=== PATIENT | female | born 1970 ===

== ENCOUNTER 2018-08-10 14:08 | Observation (INO) | payer MEDICARE, MEDICAID ==
--- NOTE | 2018-08-10 15:23 | C.PDOC ---
History Of Present Illness 48 years old female presents to ED for complaints of dizziness associated with right sided and epigastric abdominal pain and nausea that began 3 months ago. at bedside states patient is requesting tests to be done. Denies v aginal bleeding, dysuria, vomiting, diarrhea, or any other physical complaints. Patient also reports she has seen PMD recently for similar complaints and was prescribed medications meclizine and nexium. PMD: Deisy Leonard Time Seen by Provider: 08/10/18 14:28 Chief Complaint (Nursing): Dizziness/Lightheaded History Per: Patient, Family ( ) History/Exam Limitations: no limitations, language barrier Onset/Duration Of Symptoms: Days, Intermittent Episodes Current Symptoms Are (Timing): Still Present Associated Symptoms Preceding Syncopal Episode: No Predromal Symptoms (Sudden Onset) Seizure Or Post-ictal Symptoms: None Possible Causative Factor(s): Vertigo Fall Associated With With Symptoms: No Recent travel outside of the [place]: No - Symptoms Of CVA Recent Aspirin Use: No Current Coumadin Use?: No Recent Head Trauma: No Past Medical History Reviewed: Historical Data, Nursing Documentation, Vital Signs Vital Signs: Last Vital Signs Temp 97.7 F 08/10/18 14:13 Pulse 56 L 08/10/18 14:13 Resp 18 08/10/18 14:13 BP 105/71 08/10/18 14:13 Pulse Ox 99 08/10/18 14:13 - Medical History PMH: Asthma, Osteoporosis, Parkinson's Disease Family History: States: Unknown Family Hx - Social History Hx Tobacco Use: No Hx Alcohol Use: No Hx Substance Use: No - Immunization History Hx Tetanus Toxoid Vaccination: No Hx Influenza Vaccination: Yes Hx Pneumococcal Vaccination: No Review Of Systems Except As Marked, All Systems Reviewed And Found Negative. Constitutional: Negative for: Fever Gastrointestinal: Negative for: Vomiting Physical Exam - Physical Exam Additional Physical Exam Comments: Constitutional: No acute distress. Head: Normocephalic. Atraumatic. Eyes: PERRL. ENT: Moist mucous membranes. Neck: Supple. Cardiovascular: Regular rate. Radial pulse 2+ bilaterally. Chest: No tenderness. Respiratory: Clear to auscultation bilaterally. GI: Soft. Nontender. Nondistended. Back: No CVA tenderness. Musculoskeletal: No tenderness or swelling of extremities. Skin: No rash. Neurologic: Alert, no focal deficit. ED Course And Treatment - Laboratory Results Result Diagrams: 08/10/18 16:01 08/10/18 16:01 O2 Sat by Pulse Oximetry: 99 (RA) Pulse Ox Interpretation: Normal - CT Scan/US Abdomen/Pelvis CT Other Rad Studies (CT/US): Read By Radiologist, Radiology Report Reviewed CT/US Interpretation: Date of service: 08/10/2018. PROCEDURE: CT Abdomen and Pelvis with contrast. HISTORY: abdominal pain. COMPARISON: CT abdomen and pelvis without contrast performed 12/29/16. TECHNIQUE: Contrast dose: 100 mL Visipaque IV. Radiation dose: Total exam DLP = 395.22 mGy-cm. This CT exam was performed using one or more of the following dose reduction techniques: Automated exposure control, adjustment of the mA and/or kV according to patient size, and/or use of iterative reconstruction technique. FINDINGS: LOWER THORAX: No visible consolidation, pleural effusion, or pneumothorax. LIVER: Unremarkable. GALLBLADDER AND BILE DUCTS: Unremarkable. PANCREAS: Unremarkable. SPLEEN: Unremarkable. ADRENALS: Unremarkable. KIDNEYS AND URETERS: The kidneys enhance symmetrically. No hydronephrosis or obstructing calculus identified. Nonobstructing 2 mm left renal calculus. VASCULATURE: No aortic aneurysm. BOWEL: Stomach is nondistended. Lack of oral contrast limits evaluation for bowel pathology. Bowel loops appear within normal limits of caliber without evidence of obstruction. APPENDIX: The appendix appears mildly dilated measuring approximately 8 mm in diameter. Minimal adjacent inflammatory stranding. Correlate clinically for possibility of early appendicitis. PERITON EUM: Small pelvic free fluid. No definite free air. LYMPH NODES: Sub cm mesenteric lymph nodes, nonspecific. BLADDER: Unremarkable. REPRODUCTIVE: Uterus is present. Bilateral probable ovarian cysts. Prominent adnexal vasculature suggests pelvic congestion syndrome. BONES: No acute osseous abnormality is detected. OTHER FINDINGS: None. IMPRESSION: The appendix appears mildly dilated measuring approximately 8 mm in diameter. Minimal adjacent inflammatory stranding. Correlate clinically for possibility of early appendicitis. Bilateral probable ovarian cysts. Prominent adnexal vasculature suggests pelvic congestion syndrome. Small pelvic free fluid. Suggest pelvic ultrasound for further evaluation. Nonobstructing left renal calculus. Prominent sub cm mesenteric lymph nodes, nonspecific. Additional findings as above. Findings discussed with Dr. Kemp on 08/10/18 at 5:56 p.m. Medical Decision Making Medical Decision Making: Plan: * CT Abdomen/PElvis * EKG * Blood work * IV fluids * UA Progress: Paged Curt Ho. General surgeon presentation team member, consulted. Resident Dr. Bernardo evaluated patient at bedside, in consultation with Lewis, will observe. See his note. Discussed case with Dr. Yvon GALVEZ presentation team member who will evaluate patient. Shaniqua Germain accepts patient to hospitalist service. Disposition - Disposition Disposition: HOSPITALIZED Disposition Time: 20:32 Condition: FAIR Forms: [facility] (Welsh) - Clinical Impression Clinical Impression: Pelvic congestion, Appendix disease - Scribe Statement The provider has reviewed the documentation as recorded by the Scribe Nini Palmer All medical record entries made by the Scribe were at my direction and personally dictated by me. I have reviewed the chart and agree that the record accurately reflects my personal performance of the history, physical exam, medical decision making, and the department course for this patient. I have also personally directed, reviewed, and agree with the discharge instructions and disposition.
[2018-08-10] MEDS ORDERED: Sodium Chloride 0.9% 1,000 ML IV STA (15:47)
[2018-08-10 16:04] LABS: BASO % 0.5 % (0.0-2.0); EOS % 0.5 % (0.0-4.0); HEMOGLOBIN 12.6 g/dL (11.0-16.0); LYMPH # 1.5 K/uL (1.0-4.3); LYMPH % 32.1 % (20.0-40.0); MEAN CELL VOLUME 93.3 fL (81.0-99.0); MEAN CORPUSCULAR HEMOGLOBIN 31.5 pg (27.0-31.0); MEAN CORPUSCULAR HGB CONC 33.8 g/dL (33.0-37.0); MEAN PLATELET VOLUME 8.8 fL (7.2-11.7); MONO # 0.5 K/uL (0.0-0.8); MONO % 10.2 % (0.0-10.0); NEUT # 2.6 K/uL (1.8-7.0); NEUT % 56.7 % (50.0-75.0); RBC 4.01 Mil/uL (3.80-5.20); WHITE BLOOD COUNT 4.5 K/uL (4.8-10.8)
[2018-08-10 16:20] LABS: ALB/GLOB RATIO 1.2 (1.0-2.1); ALBUMIN 3.7 g/dL (3.5-5.0); ALT/SGPT 19 U/L (9-52); AST/SGOT 19 U/L (14-36); BLOOD UREA NITROGEN 14 mg/dL (7-17); CALCIUM 8.8 mg/dl (8.6-10.4); GFR NON-AFRICAN AMERICAN > 60; LIPASE 137 U/L (23-300)
[2018-08-10 16:37] LABS: HCG,QUALITATIVE URINE NEGATIVE (NEGATIVE)
[2018-08-10 16:45] LABS: SQUAMOUS EPITHIAL 2 /hpf (0-5); URINE BILIRUBIN NEGATIVE (NEGATIVE); URINE BLOOD NEGATIVE (NEGATIVE); URINE CLARITY Clear (Clear); URINE COLOR Colorless (YELLOW); URINE GLUCOSE (UA) NORMAL (Normal); URINE LEUKOCYTE ESTERASE NEG Leu/uL (Negative); URINE PROTEIN NEGATIVE (NEGATIVE); URINE UROBILINOGEN NORMAL mg/dL (0.2-1.0)
--- NOTE | 2018-08-10 18:08 | CT ---
Date of service: 08/10/2018 PROCEDURE: CT Abdomen and Pelvis with contrast HISTORY: abdominal pain COMPARISON: CT abdomen and pelvis without contrast performed 12/29/16 TECHNIQUE: Contrast dose: 100 mL Visipaque IV Radiation dose: Total exam DLP = 395.22 mGy-cm. This CT exam was performed using one or more of the following dose reduction techniques: Automated exposure control, adjustment of the mA and/or kV according to patient size, and/or use of iterative reconstruction technique. FINDINGS: LOWER THORAX: No visible consolidation, pleural effusion, or pneumothorax. LIVER: Unremarkable. GALLBLADDER AND BILE DUCTS: Unremarkable. PANCREAS: Unremarkable. SPLEEN: Unremarkable. ADRENALS: Unremarkable. KIDNEYS AND URETERS: The kidneys enhance symmetrically. No hydronephrosis or obstructing calculus identified. Nonobstructing 2 mm left renal calculus. VASCULATURE: No aortic aneurysm. BOWEL: Stomach is nondistended. Lack of oral contrast limits evaluation for bowel pathology. Bowel loops appear within normal limits of caliber without evidence of obstruction. APPENDIX: The appendix appears mildly dilated measuring approximately 8 mm in diameter. Minimal adjacent inflammatory stranding. Correlate clinically for possibility of early appendicitis. PERITONEUM: Small pelvic free fluid. No definite free air. LYMPH NODES: Sub cm mesenteric lymph nodes, nonspecific. BLADDER: Unremarkable. REPRODUCTIVE: Uterus is present. Bilateral probable ovarian cysts. Prominent adnexal vasculature suggests pelvic congestion syndrome. BONES: No acute osseous abnormality is detected. OTHER FINDINGS: None. IMPRESSION: The appendix appears mildly dilated measuring approximately 8 mm in diameter. Minimal adjacent inflammatory stranding. Correlate clinically for possibility of early appendicitis. Bilateral probable ovarian cysts. Prominent adnexal vasculature suggests pelvic congestion syndrome. Small pelvic free fluid. Suggest pelvic ultrasound for further evaluation. Nonobstructing left renal calculus. Prominent sub cm mesenteric lymph nodes, nonspecific. Additional findings as above. Findings discussed with Dr. Kemp on 08/10/18 at 5:56 p.m.
--- NOTE | 2018-08-10 20:32 | CP.PCM.CON ---
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 Pt presents with new onset weakness and dizziness. Pt is also complaining of vague abdominal pain which has been going on for 3 months. She reports the pain is throughout the entire abdomen, but mostly concentrated in the bilateral lower quadrants. Throughout this time she has felt intermittently nauseous, but has never vomited. She has continued to tolerate PO intake. Pt states she has a history of 3 C-sections. She has had long-standing history of irregular menses, and sometimes goes for months without having it. Was instructed by OBGYN to get transvaginal ultrasound as outpatient but had not completed this study. Her LMP was 1 month ago. She denies any exce ssive pain or bleeding when she does have her menses, but claims she has a "retro-flexed uterus" which causes her to be constipated, which is typically worse during her menses. Last BM was yesterday and normal, no diarrhea, no blood, though required straining. CT scans shows mildly dilated appendix 8mm, fluid filled, no appendicolith, minimal surrounding inflammation that is actually worse within the pelvis. CT also read as diffusely dilated veins within the pelvis consistent with Pelvic Co ngestion Syndrome. Review of Systems - Review of Systems All systems: reviewed and no additional remarkable complaints except (as per hpi) Past Patient History - Infectious Disease Hx of Infectious Diseases: None - Past Social History Smoking Status: Never Smoked - PULMONARY Hx Asthma: Yes - NEUROLOGICAL Hx Parkinson's Disease: Yes - HEMATOLOGICAL/ONCOLOGICAL Hx Hepatitis B: Yes Other/Comment: Hepatitis - MUSCULOSKELETAL/RHEUMATOLOGICAL Hx Osteoporosis: Yes - PSYCHIATRIC Hx Substance Use: No - SURGICAL HISTORY Hx Section: Yes (x3) - ANESTHESIA Hx Anesthesia: Yes Hx Anesthesia Reactions: No Meds Allergies/Adverse Reactions: Allergies Allergy/AdvReac Type Severity Reaction Status Date / Time budesonide [From Pulmicort] Allergy Verified 01/03/17 02:15 ciprofloxacin Allergy THROAT Verified 01/04/17 14:42 CLOSING, TINGLING, CONSTRICTION latex Allergy Verified 01/03/17 02:15 morphine Allergy Verified 01/03/17 02:15 Physical Exam - Constitutional Appears: Non-toxic, No Acute Distress - Head Exam Head Exam: NORMOCEPHALIC - Eye Exam Eye Exam: Normal appearance - ENT Exam ENT Exam: Mucous Membranes Moist - Respiratory Exam Respiratory Exam: NORMAL BREATHING PATTERN. absent: Accessory Muscle Use, Respiratory Distress - Cardiovascular Exam Cardiovascular Exam: REGULAR RHYTHM, +S1, +S2. absent: Tachycardia - GI/Abdominal Exam GI & Abdominal Exam: Normal Bowel Sounds, Soft, Tenderness (extremely minimal pain to deep palpation in L & R lower quadrants). absent: Distended, Firm, Guarding, Hernia, Mass, Rebound, Rigid Additional comments: -Rovsings, - rebound, -McBurneys - Rectal Exam Rectal Exam: Deferred - Extremities Exam Extremities exam: Negative for: calf tenderness, pedal edema - Back Exam Back exam: absent: CVA tenderness (L), CVA tenderness (R) - Neurological Exam Neurological exam: Alert, Oriented x3 - Psychiatric Exam Psychiatric exam: Normal Affect, Normal Mood Results - Vital Signs Recent Vital Signs: Last Vital Signs Temp 97.5 F L 08/10/18 18:44 Pulse 64 08/10/18 18:44 Resp 18 08/10/18 18:44 BP 95/57 L 08/10/18 18:44 Pulse Ox 99 08/10/18 18:48 - Labs Result Diagrams: 08/10/18 16:01 08/10/18 16:01 Labs: Laboratory Results - last 24 hr 08/10/18 08/10/18 08/10/18 14:26 16:01 16:01 WBC 4.5 L RBC 4.01 Hgb 12.6 Hct 37.4 MCV 93.3 MCH 31.5 H MCHC 33.8 RDW 14.0 Plt Count 156 MPV 8.8 Neut % (Auto) 56.7 Lymph % (Auto) 32.1 Cobb % (Auto) 10.2 H Eos % (Auto) 0.5 Baso % (Auto) 0.5 Neut # (Auto) 2.6 Lymph # (Auto) 1.5 Cobb # (Auto) 0.5 Eos # (Auto) 0.0 Baso # (Auto) 0.0 Sodium 139 Potassium 4.2 Chloride 104 Carbon Dioxide 27 Anion Gap 13 BUN 14 Creatinine 0.6 L Est GFR ( Amer) > 60 Est GFR (Non-Af Amer) > 60 POC Glucose (mg/dL) 101 Random Glucose 83 Calcium 8.8 Total Bilirubin 0.5 AST 19 ALT 19 Alkaline Phosphatase 62 Total Protein 6.7 Albumin 3.7 Globulin 3.0 Albumin/Globulin Ratio 1.2 Lipase 137 Urine Color Urine Clarity Urine pH Ur Specific [place] Urine Protein Urine Glucose (UA) Urine Ketones Urine Blood Urine Nitrate Urine Bilirubin Urine Urobilinogen Ur Leukocyte Esterase Urine WBC (Auto) Urine RBC (Auto) Ur Squamous Epith Cells Urine HCG, Qual 08/10/18 16:34 WBC RBC Hgb Hct MCV MCH MCHC RDW Plt Count MPV Neut % (Auto) Lymph % (Auto) [place] % (Auto) Eos % (Auto) Baso % (Auto) Neut # (Auto) Lymph # (Auto) [place] # (Auto) Eos # (Auto) Baso # (Auto) Sodium Potassium Chloride Carbon Dioxide Anion Gap BUN Creatinine Est GFR ( Amer) Est GFR (Non-Af Amer) POC Glucose (mg/dL) Random Glucose Calcium Total Bilirubin AST ALT Alkaline Phosphatase Total Protein Albumin Globulin Albumin/Globulin Ratio Lipase Urine Color Colorless Urine Clarity Clear Urine pH 8.0 Ur Specific [place] 1.002 L Urine Protein Negative Urine Glucose (UA) Normal Urine Ketones Negative Urine Blood Negative Urine Nitrate Negative Urine Bilirubin Negative Urine Urobilinogen Normal Ur Leukocyte Esterase Neg Urine WBC (Auto) < 1 Urine RBC (Auto) < 1 Ur Squamous Epith Cells 2 Urine HCG, Qual Negative Assessment & Plan - Assessment and Plan (Free Text) Assessment: 48F with 3 months history of vague abdominal pain w/ nausea, constipation Plan: clinically pt does not appear to have appendicitis would recommend pt be admitted for observation given no leukocytosis, can hold on anti-biotics til repeat labs tomorrow keep NPO recommend gynecology consult, possible transvaginal ultrasound d/w Dr Lewis Bernardo, PGY4
[2018-08-10] MEDS ORDERED: CARBIDOPA PO PRN (21:59)
[2018-08-10] MEDS ORDERED: Albuterol-Ipratrop 3 mg / 0.5 (3 ml) UD INH PRN (21:59)
[2018-08-10] MEDS ORDERED: LEVODOPA PO PRN (21:59)
[2018-08-11] MEDS ORDERED: Sodium Chloride 0.9% 1,000 ML IV SCH
--- NOTE | 2018-08-11 00:36 | CP.PCM.HP ---
<Charmaine Chaudhary - Last Filed: 08/11/18 00:33> History of Present Illness - History of Present Illness History of Present Illness: Pt is a 48F PMH parkinsons, asthma, osteoporosis who presents to ED c/o dizziness for 3 months that worsened today. She reports feeling dizzy when she gets up from bed in the morning but today it was worse and she experienced it when she was walking. She felt like she was moving left to right, back and forth. She denies any vision changes or headache. She reports not eating during the day, only having one meal at night. She also reports decreased water intake. She also complains of RLQ abdominal pain x3 months, that presents as a sharp pulsating pain for two seconds. She also reports going through menopause, and having irregular menses that are sometimes one week long, and sometimes just light spotting. Her PMD requested a TVUS which she has not yet had. SxH: 3 c-sections FamH: dad , Etoh-pancreatitis SocH: denies tobacco, alcohol, recreational drug use Meds: sinimet Allergies: budenoside, cipro, latex, morphine PMD: Horacio Present on Admission - Present on Admission Any Indicators Present on Admission: No Review of Systems - Review of Systems Review of Systems: as per HPI Past Patient History - Infectious Disease Hx of Infectious Diseases: None - Past Social History Smoking Status: Never Smoked - PULMONARY Hx Asthma: Yes - NEUROLOGICAL Hx Parkinson's Disease: Yes - HEMATOLOGICAL/ONCOLOGICAL Hx Hepatitis B: Yes Other/Comment: Hepatitis - MUSCULOSKELETAL/RHEUMATOLOGICAL Hx Osteoporosis: Yes - PSYCHIATRIC Hx Substance Use: No - SURGICAL HISTORY Hx Section: Yes (x3) - ANESTHESIA Hx Anesthesia: Yes Hx Anesthesia Reactions: No Meds Allergies/Adverse Reactions: Allergies Allergy/AdvReac Type Severity Reaction Status Date / Time budesonide [From Pulmicort] Allergy Verified 01/03/17 02:15 ciprofloxacin Allergy THROAT Verified 01/04/17 14:42 CLOSING, TINGLING, CONSTRICTION latex Allergy Verified 01/03/17 02:15 morphine Allergy Verified 01/03/17 02:15 Physical Exam - Constitutional Appears: Well, No Acute Distress - Head Exam Head Exam: ATRAUMATIC, NORMOCEPHALIC - Eye Exam Eye Exam: EOMI, Normal appearance, PERRL Pupil Exam: NORMAL ACCOMODATION - ENT Exam ENT Exam: Mucous Membranes Moist - Respiratory Exam Respiratory Exam: Clear to Auscultation Bilateral, NORMAL BREATHING PATTERN. absent: Rales, Rhonchi, Wheezes, Respiratory Distress - Cardiovascular Exam Cardiovascular Exam: REGULAR RHYTHM, RRR, +S1, +S2. absent: Gallop, Rubs, Systolic Murmur - GI/Abdominal Exam GI & Abdominal Exam: Normal Bowel Sounds, Soft. absent: Distended, Firm, Tenderness Additional comments: no suprapubic tenderness - Extremities Exam Extremities exam: Positive for: normal inspection. Negative for: pedal edema, tenderness - Neurological Exam Neurological exam: Alert, CN II-XII Intact, Oriented x3 - Psychiatric Exam Psychiatric exam: Normal Affect, Normal Mood Results - Vital Signs Recent Vital Signs: Last Vital Signs Temp 98.6 F 08/10/18 21:08 Pulse 59 L 08/10/18 21:08 Resp 16 08/10/18 21:08 BP 104/69 08/10/18 21:08 Pulse Ox 100 08/10/18 21:08 - Labs Result Diagrams: 08/10/18 16:01 08/10/18 16:01 Labs: Laboratory Results - last 24 hr 08/10/18 08/10/18 08/10/18 14:26 16:01 16:01 WBC 4.5 L RBC 4.01 Hgb 12.6 Hct 37.4 MCV 93.3 MCH 31.5 H MCHC 33.8 RDW 14.0 Plt Count 156 MPV 8.8 Neut % (Auto) 56.7 Lymph % (Auto) 32.1 [place] % (Auto) 10.2 H Eos % (Auto) 0.5 Baso % (Auto) 0.5 Neut # (Auto) 2.6 Lymph # (Auto) 1.5 [place] # (Auto) 0.5 Eos # (Auto) 0.0 Baso # (Auto) 0.0 Sodium 139 Potassium 4.2 Chloride 104 Carbon Dioxide 27 Anion Gap 13 BUN 14 Creatinine 0.6 L Est GFR ( Amer) > 60 Est GFR (Non-Af Amer) > 60 POC Glucose (mg/dL) 101 Random Glucose 83 Calcium 8.8 Total Bilirubin 0.5 AST 19 ALT 19 Alkaline Phosphatase 62 Total Protein 6.7 Albumin 3.7 Globulin 3.0 Albumin/Globulin Ratio 1.2 Lipase 137 Urine Color Urine Clarity Urine pH Ur Specific [place] Urine Protein Urine Glucose (UA) Urine Ketones Urine Blood Urine Nitrate Urine Bilirubin Urine Urobilinogen Ur Leukocyte Esterase Urine WBC (Auto) Urine RBC (Auto) Ur Squamous Epith Cells Urine HCG, Qual 08/10/18 16:34 WBC RBC Hgb Hct MCV MCH MCHC RDW Plt Count MPV Neut % (Auto) Lymph % (Auto) [place] % (Auto) Eos % (Auto) Baso % (Auto) Neut # (Auto) Lymph # (Auto) [place] # (Auto) Eos # (Auto) Baso # (Auto) Sodium Potassium Chloride Carbon Dioxide Anion Gap BUN Creatinine Est GFR ( Amer) Est GFR (Non-Af Amer) POC Glucose (mg/dL) Random Glucose Calcium Total Bilirubin AST ALT Alkaline Phosphatase Total Protein Albumin Globulin Albumin/Globulin Ratio Lipase Urine Color Colorless Urine Clarity Clear Urine pH 8.0 Ur Specific [place] 1.002 L Urine Protein Negative Urine Glucose (UA) Normal Urine Ketones Negative Urine Blood Negative Urine Nitrate Negative Urine Bilirubin Negative Urine Urobilinogen Normal Ur Leukocyte Esterase Neg Urine WBC (Auto) < 1 Urine RBC (Auto) < 1 Ur Squamous Epith Cells 2 Urine HCG, Qual Negative Assessment & Plan - Assessment and Plan (Free Text) Assessment: Pt is a 48F PMH parkinsons, asthma, osteoporosis who presents to ED c/o ricco crocker admitted for further evaluation and treatment of possible appendicitis Plan: Early Appendicitis - pt afebrile - WBC - asymptomatic - CT abdomen/pelvis: appendix mildly dilated approx 8mm. minimal adjacent inflammatory stranding. possible early appendicitis - repeat CT abdomen pelvis in AM - General surgery consulted, Dr. Saucedo: recommend monitoring without antibiotics - NPO Pelvic Congestion syndrome - pt with irregular menses - CT abdomen/pelvis: b/l ovarian cysts. priminent adnexal vasculature suggestive of pelvic congestion syndrome. small free pelvic fluid - TV/US ordered - IN[employer]E T[employer] EXPERT consulted, Dr. Sanz: f/u recs Parkinsons - pt asymptomatic - sinimet PRN Asthma - pt asymptomatic - duonebs PRN PPX: Pepcid 20 SCDs NPO except meds Case reviewed and plan discussed with Dr. Germain <Himanshu Germain - Last Filed: 08/11/18 06:37> Results - Vital Signs Recent Vital Signs: Last Vital Signs Temp 98.3 F 08/11/18 04:21 Pulse 62 10/15/18 04:21 Resp 16 08/11/18 04:21 BP 96/57 L 08/11/18 04:21 Pulse Ox 98 08/11/18 04:21 - Labs Result Diagrams: 08/11/18 04:08 08/11/18 04:08 Labs: Laboratory Results - last 24 hr 08/10/18 08/10/18 08/10/18 14:26 16:01 16:01 WBC 4.5 L RBC 4.01 Hgb 12.6 Hct 37.4 MCV 93.3 MCH 31.5 H MCHC 33.8 RDW 14.0 Plt Count 156 MPV 8.8 Neut % (Auto) 56.7 Lymph % (Auto) 32.1 [place] % (Auto) 10.2 H Eos % (Auto) 0.5 Baso % (Auto) 0.5 Neut # (Auto) 2.6 Lymph # (Auto) 1.5 [place] # (Auto) 0.5 Eos # (Auto) 0.0 Baso # (Auto) 0.0 Sodium 139 Potassium 4.2 Chloride 104 Carbon Dioxide 27 Anion Gap 13 BUN 14 Creatinine 0.6 L Est GFR ( Amer) > 60 Est GFR (Non-Af Amer) > 60 POC Glucose (mg/dL) 101 Random Glucose 83 Calcium 8.8 Total Bilirubin 0.5 AST 19 ALT 19 Alkaline Phosphatase 62 Total Protein 6.7 Albumin 3.7 Globulin 3.0 Albumin/Globulin Ratio 1.2 Lipase 137 Urine Color Urine Clarity Urine pH Ur Specific [place] Urine Protein Urine Glucose (UA) Urine Ketones Urine Blood Urine Nitrate Urine Bilirubin Urine Urobilinogen Ur Leukocyte Esterase Urine WBC (Auto) Urine RBC (Auto) Ur Squamous Epith Cells Urine HCG, Qual 08/10/18 08/11/18 08/11/18 16:34 04:08 04:08 WBC 5.6 RBC 3.80 Hgb 11.8 Hct 35.4 MCV 93.1 MCH 31.1 H MCHC 33.4 RDW 13.8 Plt Count 135 MPV 9.0 Neut % (Auto) 49.0 L Lymph % (Auto) 38.7 [place] % (Auto) 10.9 H Eos % (Auto) 1.1 Baso % (Auto) 0.3 Neut # (Auto) 2.8 Lymph # (Auto) 2.2 [place] # (Auto) 0.6 Eos # (Auto) 0.1 Baso # (Auto) 0.0 Sodium 139 Potassium 3.6 Chloride 108 H Carbon Dioxide 23 Anion Gap 11 BUN 10 Creatinine 0.6 L Est GFR ( Amer) > 60 Est GFR (Non-Af Amer) > 60 POC Glucose (mg/dL) Random Glucose 79 Calcium 8.2 L Total Bilirubin 0.5 AST 17 ALT 17 Alkaline Phosphatase 56 Total Protein 5.9 L Albumin 3.2 L Globulin 2.7 Albumin/Globulin Ratio 1.2 Lipase Urine Color Colorless Urine Clarity Clear Urine pH 8.0 Ur Specific [place] 1.002 L Urine Protein Negative Urine Glucose (UA) Normal Urine Ketones Negative Urine Blood Negative Urine Nitrate Negative Urine Bilirubin Negative Urine Urobilinogen Normal Ur Leukocyte Esterase Neg Urine WBC (Auto) < 1 Urine RBC (Auto) < 1 Ur Squamous Epith Cells 2 Urine HCG, Qual Negative Assessment & Plan - Date & Time Date: 08/11/18 (I have seen and examined the patient. I agree with the findings and plan of care as documented by Dr. Chaudhary. Patient with possible early appendicitis. Seen by surgery. Reports no surgery necessary at this time. Will monitor for worsening symptoms, increased white count, and fever. Also with pelvic congestion syndrome. 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 Monitor for acute changes.) Time: 06:35 Attending/Attestation - Attestation I have personally seen and examined this patient.: Yes I have fully participated in the care of the patient.: Yes I have reviewed all pertinent clinical information: Yes
[2018-08-11 04:11] LABS: BASO % 0.3 % (0.0-2.0); EOS # 0.1 K/uL (0.0-0.7); EOS % 1.1 % (0.0-4.0); HEMOGLOBIN 11.8 g/dL (11.0-16.0); LYMPH # 2.2 K/uL (1.0-4.3); LYMPH % 38.7 % (20.0-40.0); MEAN CELL VOLUME 93.1 fL (81.0-99.0); MEAN CORPUSCULAR HEMOGLOBIN 31.1 pg (27.0-31.0); MEAN CORPUSCULAR HGB CONC 33.4 g/dL (33.0-37.0); MONO # 0.6 K/uL (0.0-0.8); MONO % 10.9 % (0.0-10.0); NEUT # 2.8 K/uL (1.8-7.0); NRBC % 0.2 % (0.0-2.0); RBC 3.8 Mil/uL (3.80-5.20); RED CELL DISTRIBUTION WIDTH 13.8 % (11.5-14.5); WHITE BLOOD COUNT 5.6 K/uL (4.8-10.8)
[2018-08-11 04:26] LABS: ALB/GLOB RATIO 1.2 (1.0-2.1); ALBUMIN 3.2 g/dL (3.5-5.0); ALT/SGPT 17 U/L (9-52); AST/SGOT 17 U/L (14-36); BLOOD UREA NITROGEN 10 mg/dL (7-17); CALCIUM 8.2 mg/dl (8.6-10.4); GFR NON-AFRICAN AMERICAN > 60
[2018-08-11] MEDS ORDERED: Iohexol 240 (50 ml) PO ONE (05:54)
[2018-08-11] MEDS ORDERED: Dextrose 50% SYRINGE Inj (50 ml) IV ONE (07:15)
--- NOTE | 2018-08-11 08:40 | CP.PCM.PN ---
Subjective - Date & Time of Evaluation Date of Evaluation: 08/11/18 Time of Evaluation: 06:50 - Subjective Subjective: Surgery progress note for Dr. Saucedo Pt seen and examined at bedside, No adverse events overnight. Patient states she feels better this AM. Denies any nausea or vomiting Objective - Vital Signs/Intake and Output Vital Signs (last 24 hours): Temp Pulse Resp BP Pulse Ox 98.3 F 62 16 96/57 L 98 08/11/18 04:21 08/11/18 04:21 08/11/18 04:21 08/11/18 04:21 08/11/18 04:21 - Medications Medications: Current Medications Acetaminophen (Tylenol 325mg Tab) 650 mg PO Q6 PRN PRN Reason: Pain, moderate (4-7) Albuterol/Ipratropium (Duoneb 3 Mg/0.5 Mg (3 Ml) Ud) 3 ml INH RQ4 PRN PRN Reason: Shortness of Breath Carbidopa/Levodopa (Sinemet) 1 tab PO DAILY PRN PRN Reason: Rigors Famotidine (Pepcid) 20 mg PO DAILY CÉSAR Sodium Chloride (Sodium Chloride 0.9%) 1,000 mls @ 100 mls/hr IV .Q10H CÉSAR Last Admin: 08/11/18 00:00 Dose: 100 mls/hr Ondansetron HCl (Zofran Inj) 4 mg IVP Q6 PRN PRN Reason: Nausea/Vomiting Zolpidem Tartrate (Ambien) 5 mg PO HS PRN PRN Reason: Insomnia Last Admin: 08/10/18 23:43 Dose: 5 mg - Labs Labs: 08/11/18 04:08 08/11/18 04:08 - Constitutional Appears: Well, Non-toxic, No Acute Distress - Head Exam Head Exam: ATRAUMATIC, NORMOCEPHALIC - Eye Exam Eye Exam: Normal appearance. absent: Conjunctival injection, Scleral icterus - ENT Exam ENT Exam: Mucous Membranes Moist, Normal Oropharynx - Respiratory Exam Respiratory Exam: NORMAL BREATHING PATTERN. absent: Accessory Muscle Use, Respiratory Distress - Cardiovascular Exam Cardiovascular Exam: RRR - GI/Abdominal Exam GI & Abdominal Exam: Soft. absent: Distended, Tenderness, Rebound - Extremities Exam Extremities Exam: absent: Calf Tenderness, Pedal Edema, Tenderness - Neurological Exam Neurological Exam: Alert, Awake, Oriented x3 - Psychiatric Exam Psychiatric exam: Normal Affect, Normal Mood - Skin Skin Exam: Dry, Normal Color, Warm Assessment and Plan - Assessment and Plan (Free Text) Assessment: 48F with RLQ for 3 weeks, pelvic congestion syndrome vs acute appendicitis Plan: No surgical intervention planned at this time--patient has no pain this AM, no leukocytosis, and minimal changes of the appendix on initial CT and on repeat CT with PO contrast. Recommend OPERATOR/ASSISTANT FOREMAN consult F/U official CT report NPO pending official CT read and OPERATOR/ASSISTANT FOREMAN recs IVF PRN pain medication Discussed with Dr. Lewis Cooper, PGY2
--- NOTE | 2018-08-11 09:56 | CT ---
Date of service: 08/11/2018 PROCEDURE: CT Abdomen and Pelvis without intravenous contrast HISTORY: Right lower quadrant abdominal pain. COMPARISON: CT dated 08/10/2018 TECHNIQUE: Multiple contiguous axial images were performed through the abdomen and pelvis without the use of intravenous contrast. Subsequently, sagittal and coronal reformatted images were obtained. Radiation dose: Total exam DLP = 379 mGy-cm. This CT exam was performed using one or more of the following dose reduction techniques: Automated exposure control, adjustment of the mA and/or kV according to patient size, and/or use of iterative reconstruction technique. FINDINGS: LOWER THORAX: Unremarkable. LIVER: Heterogeneous attenuation of the liver, nonspecific. Evaluation is limited without contrast. GALLBLADDER AND BILE DUCTS: Contrast noted within the gallbladder likely from vicarious excretion. PANCREAS: Unremarkable. No gross lesion or ductal dilatation. SPLEEN: Unremarkable. ADRENALS: Unremarkable. No mass. KIDNEYS AND URETERS: 3 millimeter nonobstructive calculus in the midpole of the left kidney. VASCULATURE: Unremarkable. No aortic aneurysm. BOWEL: See below. APPENDIX: Mild thickening of the appendix measuring up to 9 millimeters with mild adjacent periappendiceal fat stranding. These findings are nonspecific however developing or mild early acute appendicitis cannot be excluded. Clinical correlation. PERITONEUM: Free fluid within the pelvic cul-de-sac. LYMPH NODES: Shotty para-aortic and inguinal lymph nodes. Multiple shotty mesenteric lymph nodes for example in the left gee abdomen measuring up to 1.7 centimeters, nonspecific. BLADDER: Distended urinary bladder. REPRODUCTIVE: Heterogeneous uterus and bilateral adnexa. Prominent adnexal vasculature suggestive for pelvic congestion syndrome. BONES: Degenerative changes in the spine. Prominent Schmorl's node at the inferior endplate of the T12 vertebral body. OTHER FINDINGS: None. IMPRESSION: Persistent mild thickening of the appendix measuring up to 9 millimeters with mild adjacent periappendiceal fat stranding. These findings are nonspecific; however, developing or mild early acute appendicitis cannot be excluded. Clinical correlation. Heterogeneous uterus and bilateral adnexa. Prominent adnexal vasculature suggestive for pelvic congestion syndrome. Free fluid within the pelvic cul-de-sac. Shotty para-aortic and inguinal lymph nodes. Multiple shotty mesenteric lymph nodes; for example, in the left gee abdomen measuring up to 1.7 centimeters, nonspecific. 3 millimeter nonobstructive calculus in the midpole of the left kidney.
[2018-08-11] MEDS ORDERED: Dextrose 5%/0.45% NS 1,000 ML IV SCH (10:45)
[2018-08-11] MEDS ORDERED: Dextrose 5%/0.45% NS 1,000 ML IV ONE (10:46)
[2018-08-11 11:24] VITALS: TEMP 98.1
--- NOTE | 2018-08-11 11:35 | CP.PCM.CON ---
Addendum entered and electronically signed by Rosario Archuleta 08/13/18 09:25: Patient not seen by me. Note entered in error. Original Note: <Rosario Archuleta - Last Filed: 08/11/18 12:08> Meds Home Medications: Home Medication List Medication Instructions Recorded Confirmed Type Amoxicillin/Clavulanate [Augmentin 1 tab PO BID #10 tab 08/11/18 Rx 875 MG-125 MG] Allergies/Adverse Reactions: Allergies Allergy/AdvReac Type Severity Reaction Status Date / Time budesonide [From Pulmicort] Allergy Verified 08/11/18 22:36 ciprofloxacin Allergy THROAT Verified 08/11/18 22:36 CLOSING, TINGLING, CONSTRICTION latex Allergy Verified 08/11/18 22:36 morphine Allergy Verified 08/11/18 22:36 - Medications Medications: Current Medications Acetaminophen (Tylenol 325mg Tab) 650 mg PO Q6 PRN PRN Reason: Pain, moderate (4-7) Albuterol/Ipratropium (Duoneb 3 Mg/0.5 Mg (3 Ml) Ud) 3 ml INH RQ4 PRN PRN Reason: Shortness of Breath Carbidopa/Levodopa (Sinemet) 1 tab PO DAILY PRN PRN Reason: Rigors Famotidine (Pepcid) 20 mg PO DAILY [facility] Last Admin: 08/11/18 11:19 Dose: 20 mg Dextrose/Sodium Chloride (Dextrose 5%/0.45% Ns 1000 Ml) 1,000 mls @ 100 mls/hr IV .Q10H [facility] [place] Last Admin: 08/11/18 11:19 Dose: 100 mls/hr Ondansetron HCl (Zofran Inj) 4 mg IVP Q6 PRN PRN Reason: Nausea/Vomiting Zolpidem Tartrate (Ambien) 5 mg PO HS PRN PRN Reason: Insomnia Last Admin: 08/10/18 23:43 Dose: 5 mg Results - Vital Signs Recent Vital Signs: Last Vital Signs Temp 98.1 F 08/11/18 11:24 Pulse 51 L 08/11/18 11:24 Resp 17 08/11/18 11:24 BP 98/63 L 08/11/18 11:24 Pulse Ox 100 08/11/18 11:24 - Labs Result Diagrams: 08/11/18 04:08 08/11/18 04:08 Labs: Laboratory Results - last 24 hr 08/10/18 08/10/18 08/10/18 14:26 16:01 16:01 WBC 4.5 L RBC 4.01 Hgb 12.6 Hct 37.4 MCV 93.3 MCH 31.5 H MCHC 33.8 RDW 14.0 Plt Count 156 MPV 8.8 Neut % (Auto) 56.7 Lymph % (Auto) 32.1 Ashley % (Auto) 10.2 H Eos % (Auto) 0.5 Baso % (Auto) 0.5 Neut # (Auto) 2.6 Lymph # (Auto) 1.5 Ashley # (Auto) 0.5 Eos # (Auto) 0.0 Baso # (Auto) 0.0 Sodium 139 Potassium 4.2 Chloride 104 Carbon Dioxide 27 Anion Gap 13 BUN 14 Creatinine 0.6 L Est GFR ( Amer) > 60 Est GFR (Non-Af Amer) > 60 POC Glucose (mg/dL) 101 Random Glucose 83 Calcium 8.8 Total Bilirubin 0.5 AST 19 ALT 19 Alkaline Phosphatase 62 Total Protein 6.7 Albumin 3.7 Globulin 3.0 Albumin/Globulin Ratio 1.2 Lipase 137 CA 125 Antigen Urine Color Urine Clarity Urine pH Ur Specific Hooks Urine Protein Urine Glucose (UA) Urine Ketones Urine Blood Urine Nitrate Urine Bilirubin Urine Urobilinogen Ur Leukocyte Esterase Urine WBC (Auto) Urine RBC (Auto) Ur Squamous Epith Cells Urine HCG, Qual 08/10/18 08/11/18 08/11/18 16:34 04:08 04:08 WBC 5.6 RBC 3.80 Hgb 11.8 Hct 35.4 MCV 93.1 MCH 31.1 H MCHC 33.4 RDW 13.8 Plt Count 135 MPV 9.0 Neut % (Auto) 49.0 L Lymph % (Auto) 38.7 Ashley % (Auto) 10.9 H Eos % (Auto) 1.1 Baso % (Auto) 0.3 Neut # (Auto) 2.8 Lymph # (Auto) 2.2 Ashley # (Auto) 0.6 Eos # (Auto) 0.1 Baso # (Auto) 0.0 Sodium 139 Potassium 3.6 Chloride 108 H Carbon Dioxide 23 Anion Gap 11 BUN 10 Creatinine 0.6 L Est GFR ( Amer) > 60 Est GFR (Non-Af Amer) > 60 POC Glucose (mg/dL) Random Glucose 79 Calcium 8.2 L Total Bilirubin 0.5 AST 17 ALT 17 Alkaline Phosphatase 56 Total Protein 5.9 L Albumin 3.2 L Globulin 2.7 Albumin/Globulin Ratio 1.2 Lipase CA 125 Antigen < 5.5 Urine Color Colorless Urine Clarity Clear Urine pH 8.0 Ur Specific Hooks 1.002 L Urine Protein Negative Urine Glucose (UA) Normal Urine Ketones Negative Urine Blood Negative Urine Nitrate Negative Urine Bilirubin Negative Urine Urobilinogen Normal Ur Leukocyte Esterase Neg Urine WBC (Auto) < 1 Urine RBC (Auto) < 1 Ur Squamous Epith Cells 2 Urine HCG, Qual Negative 08/11/18 08/11/18 08/11/18 06:46 06:50 09:55 WBC RBC Hgb Hct MCV MCH MCHC RDW Plt Count MPV Neut % (Auto) Lymph % (Auto) Ashley % (Auto) Eos % (Auto) Baso % (Auto) Neut # (Auto) Lymph # (Auto) Ashley # (Auto) Eos # (Auto) Baso # (Auto) Sodium Potassium Chloride Carbon Dioxide Anion Gap BUN Creatinine Est GFR ( Amer) Est GFR (Non-Af Amer) POC Glucose (mg/dL) 68 79 62 L Random Glucose Calcium Total Bilirubin AST ALT Alkaline Phosphatase Total Protein Albumin Globulin Albumin/Globulin Ratio Lipase CA 125 Antigen Urine Color Urine Clarity Urine pH Ur Specific Hooks Urine Protein Urine Glucose (UA) Urine Ketones Urine Blood Urine Nitrate Urine Bilirubin Urine Urobilinogen Ur Leukocyte Esterase Urine WBC (Auto) Urine RBC (Auto) Ur Squamous Epith Cells Urine HCG, Qual 08/11/18 09:59 WBC RBC Hgb Hct MCV MCH MCHC RDW Plt Count MPV Neut % (Auto) Lymph % (Auto) Ashley % (Auto) Eos % (Auto) Baso % (Auto) Neut # (Auto) Lymph # (Auto) Ashley # (Auto) Eos # (Auto) Baso # (Auto) Sodium Potassium Chloride Carbon Dioxide Anion Gap BUN Creatinine Est GFR ( Amer) Est GFR (Non-Af Amer) POC Glucose (mg/dL) 62 L Random Glucose Calcium Total Bilirubin AST ALT Alkaline Phosphatase Total Protein Albumin Globulin Albumin/Globulin Ratio Lipase CA 125 Antigen Urine Color Urine Clarity Urine pH Ur Specific Hooks Urine Protein Urine Glucose (UA) Urine Ketones Urine Blood Urine Nitrate Urine Bilirubin Urine Urobilinogen Ur Leukocyte Esterase Urine WBC (Auto) Urine RBC (Auto) Ur Squamous Epith Cells Urine HCG, Qual <SammyAllan - Last Filed: 08/13/18 09:22> History of Present Illness - History of Present Illness History of Present Illness: Allan Christianson, PGY1 [employer] Consult Note for Dr. Sanz Patient is a 48 y/o F with PMHx of Parkinson's disease (diagnosed 10 years) who presented to the ED complaining of dizziness and mild abdominal pain. In the ED, CT abd/pelvis indicated mildly dilated appendix with prominent adnexal vasculature. SHARK BIOLOGIST was consulted for possible pelvic congestion syndrome. Patient evaluated in the ED. Patient's dizziness started one week ago when patient stands up. It is worsened by standing and turning neck to the left. Patient's abdominal pain has been on and off for the past 3 months. Patient has not took anything for abdominal pain and has not seen any specialists for the pain. She endorses mild headache, hot flashes, chills, and constipation. Denies shortness of breath, cp, fever, weight changes, n/v/d, dysuria, increased urinary frequency, and vaginal bleeding. Patient indicates she has not been drinking much water recently. A full 12 point ROS was conducted and unremarkable except as stated above. Past GynHx: menarche at age 14. Periods occur 28-30 days interval and last 5-6 days in duration; with occasional menorrhagia. This year her periods have become irregular, occurring every 2 months. Last menstrual period was in the beginning of May. Latest pap smear was normal (1.5 months ago). Negative HPV testing. No history of STI. Previous UTI and was given ciprofloxacin as outpatient. Past OBHx: . History of 3 c-sections and a previous pre-eclampsia. One missed in which she had a D&C. She had miscarriage at 7 months gestational age. She had one set of twin deliveries that were delivered vaginally and as neonates. She had one delivery at 6 months gestation. As per prior charting: PMHx: Parkinson's disease SHx: 3 c-sections, D&C FamHx: dad , Etoh-pancreatitis SocHx: denies tobacco, alcohol, recreational drug use Meds: sinimet Allergies: budenoside, cipro, latex, morphine PMD: Horacio Review of Systems - Review of Systems All systems: reviewed and no additional remarkable complaints except (as per HPI) Past Patient History - Infectious Disease Hx of Infectious Diseases: None - Past Social History Smoking Status: Never Smoked - PULMONARY Hx Asthma: Yes - NEUROLOGICAL Hx Parkinson's Disease: Yes - HEMATOLOGICAL/ONCOLOGICAL Hx Hepatitis B: Yes Other/Comment: Hepatitis - MUSCULOSKELETAL/RHEUMATOLOGICAL Hx Osteoporosis: Yes - PSYCHIATRIC Hx Substance Use: No - SURGICAL HISTORY Hx Section: Yes (x3) - ANESTHESIA Hx Anesthesia: Yes Hx Anesthesia Reactions: No Meds - Medications Medications: Current Medications Acetaminophen (Tylenol 325mg Tab) 650 mg PO Q6 PRN PRN Reason: Pain, moderate (4-7) Albuterol/Ipratropium (Duoneb 3 Mg/0.5 Mg (3 Ml) Ud) 3 ml INH RQ4 PRN PRN Reason: Shortness of Breath Carbidopa/Levodopa (Sinemet) 1 tab PO DAILY PRN PRN Reason: Rigors Famotidine (Pepcid) 20 mg PO DAILY [facility] Last Admin: 08/11/18 11:19 Dose: 20 mg Dextrose/Sodium Chloride (Dextrose 5%/0.45% Ns 1000 Ml) 1,000 mls @ 100 mls/hr IV .Q10H [facility] Last Admin: 08/11/18 11:19 Dose: 100 mls/hr Ondansetron HCl (Zofran Inj) 4 mg IVP Q6 PRN PRN Reason: Nausea/Vomiting Zolpidem Tartrate (Ambien) 5 mg PO HS PRN PRN Reason: Insomnia Last Admin: 08/10/18 23:43 Dose: 5 mg Physical Exam - Constitutional Appears: Well, No Acute Distress - Head Exam Head Exam: ATRAUMATIC, NORMAL INSPECTION, NORMOCEPHALIC - Eye Exam Eye Exam: EOMI, Normal appearance, PERRL Pupil Exam: NORMAL ACCOMODATION, PERRL - ENT Exam ENT Exam: Mucous Membranes Moist, Normal Exam - Neck Exam Neck exam: Positive for: Normal Inspection - Respiratory Exam Respiratory Exam: Clear to Auscultation Bilateral, NORMAL BREATHING PATTERN. absent: Rales, Rhonchi, Wheezes - Cardiovascular Exam Cardiovascular Exam: REGULAR RHYTHM, +S1, +S2. absent: Systolic Murmur - GI/Abdominal Exam GI & Abdominal Exam: Normal Bowel Sounds, Soft. absent: Firm, Guarding, Organomegaly, Rebound, Rigid, Tenderness Additional comments: No tenderness to palpation of abdomen. - Exam External exam: NORMAL EXTERNAL EXAM Speculum exam: NORMAL SPECULUM EXAM. absent: Cervical Discharge, Foreign Body, Laceration, Vaginal Bleeding, Vaginal Discharge Bimanual exam: NORMAL BIMANUAL EXAM. absent: Adenexal Mass, Cervical Motion Tendernes, Uterine Enlargement, Uterine Tenderness Additional comments: Upon speculum exam, patient has retroverted uterus. No nodules, masses, or cysts appreciated. No bleeding or discharge noted. - Extremities Exam Extremities exam: Positive for: normal inspection, pedal pulses present - Back Exam Back exam: NORMAL INSPECTION - Skin Skin Exam: Dry, Intact, Normal Color, Warm Results - Vital Signs Recent Vital Signs: Last Vital Signs Temp 98.1 F 08/11/18 11:24 Pulse 51 L 08/11/18 11:24 Resp 17 08/11/18 11:24 BP 98/63 L 08/11/18 11:24 Pulse Ox 100 08/11/18 11:24 - Labs Result Diagrams: 08/11/18 04:08 08/11/18 04:08 Labs: Laboratory Results - last 24 hr 08/10/18 08/10/18 08/10/18 14:26 16:01 16:01 WBC 4.5 L RBC 4.01 Hgb 12.6 Hct 37.4 MCV 93.3 MCH 31.5 H MCHC 33.8 RDW 14.0 Plt Count 156 MPV 8.8 Neut % (Auto) 56.7 Lymph % (Auto) 32.1 Ashley % (Auto) 10.2 H Eos % (Auto) 0.5 Baso % (Auto) 0.5 Neut # (Auto) 2.6 Lymph # (Auto) 1.5 Ashley # (Auto) 0.5 Eos # (Auto) 0.0 Baso # (Auto) 0.0 Sodium 139 Potassium 4.2 Chloride 104 Carbon Dioxide 27 Anion Gap 13 BUN 14 Creatinine 0.6 L Est GFR ( Amer) > 60 Est GFR (Non-Af Amer) > 60 POC Glucose (mg/dL) 101 Random Glucose 83 Calcium 8.8 Total Bilirubin 0.5 AST 19 ALT 19 Alkaline Phosphatase 62 Total Protein 6.7 Albumin 3.7 Globulin 3.0 Albumin/Globulin Ratio 1.2 Lipase 137 CA 125 Antigen Urine Color Urine Clarity Urine pH Ur Specific Hooks Urine Protein Urine Glucose (UA) Urine Ketones Urine Blood Urine Nitrate Urine Bilirubin Urine Urobilinogen Ur Leukocyte Esterase Urine WBC (Auto) Urine RBC (Auto) Ur Squamous Epith Cells Urine HCG, Qual 08/10/18 08/11/18 08/11/18 16:34 04:08 04:08 WBC 5.6 RBC 3.80 Hgb 11.8 Hct 35.4 MCV 93.1 MCH 31.1 H MCHC 33.4 RDW 13.8 Plt Count 135 MPV 9.0 Neut % (Auto) 49.0 L Lymph % (Auto) 38.7 Ashley % (Auto) 10.9 H Eos % (Auto) 1.1 Baso % (Auto) 0.3 Neut # (Auto) 2.8 Lymph # (Auto) 2.2 Ashley # (Auto) 0.6 Eos # (Auto) 0.1 Baso # (Auto) 0.0 Sodium 139 Potassium 3.6 Chloride 108 H Carbon Dioxide 23 Anion Gap 11 BUN 10 Creatinine 0.6 L Est GFR ( Amer) > 60 Est GFR (Non-Af Amer) > 60 POC Glucose (mg/dL) Random Glucose 79 Calcium 8.2 L Total Bilirubin 0.5 AST 17 ALT 17 Alkaline Phosphatase 56 Total Protein 5.9 L Albumin 3.2 L Globulin 2.7 Albumin/Globulin Ratio 1.2 Lipase CA 125 Antigen < 5.5 Urine Color Colorless Urine Clarity Clear Urine pH 8.0 Ur Specific Hooks 1.002 L Urine Protein Negative Urine Glucose (UA) Normal Urine Ketones Negative Urine Blood Negative Urine Nitrate Negative Urine Bilirubin Negative Urine Urobilinogen Normal Ur Leukocyte Esterase Neg Urine WBC (Auto) < 1 Urine RBC (Auto) < 1 Ur Squamous Epith Cells 2 Urine HCG, Qual Negative 08/11/18 08/11/18 08/11/18 06:46 06:50 09:55 WBC RBC Hgb Hct MCV MCH MCHC RDW Plt Count MPV Neut % (Auto) Lymph % (Auto) Ashley % (Auto) Eos % (Auto) Baso % (Auto) Neut # (Auto) Lymph # (Auto) Ashley # (Auto) Eos # (Auto) Baso # (Auto) Sodium Potassium Chloride Carbon Dioxide Anion Gap BUN Creatinine Est GFR ( Amer) Est GFR (Non-Af Amer) POC Glucose (mg/dL) 68 79 62 L Random Glucose Calcium Total Bilirubin AST ALT Alkaline Phosphatase Total Protein Albumin Globulin Albumin/Globulin Ratio Lipase CA 125 Antigen Urine Color Urine Clarity Urine pH Ur Specific Hooks Urine Protein Urine Glucose (UA) Urine Ketones Urine Blood Urine Nitrate Urine Bilirubin Urine Urobilinogen Ur Leukocyte Esterase Urine WBC (Auto) Urine RBC (Auto) Ur Squamous Epith Cells Urine HCG, Qual 08/11/18 09:59 WBC RBC Hgb Hct MCV MCH MCHC RDW Plt Count MPV Neut % (Auto) Lymph % (Auto) Ashley % (Auto) Eos % (Auto) Baso % (Auto) Neut # (Auto) Lymph # (Auto) Ashley # (Auto) Eos # (Auto) Baso # (Auto) Sodium Potassium Chloride Carbon Dioxide Anion Gap BUN Creatinine Est GFR ( Amer) Est GFR (Non-Af Amer) POC Glucose (mg/dL) 62 L Random Glucose Calcium Total Bilirubin AST ALT Alkaline Phosphatase Total Protein Albumin Globulin Albumin/Globulin Ratio Lipase CA 125 Antigen Urine Color Urine Clarity Urine pH Ur Specific Hooks Urine Protein Urine Glucose (UA) Urine Ketones Urine Blood Urine Nitrate Urine Bilirubin Urine Urobilinogen Ur Leukocyte Esterase Urine WBC (Auto) Urine RBC (Auto) Ur Squamous Epith Cells Urine HCG, Qual Assessment & Plan - Assessment and Plan (Free Text) Assessment: Patient is a 48 y/o F with PMHx of Parkinson's disease (diagnosed 10 years) who presented to the ED complaining of dizziness and mild abdominal pain. CT abd/pelvis showed mildly dilated appendix and prominent adnexal vasculature. The [employer] [employer] team was consulted for possible pelvic congestion syndrome noted on imaging. Plan: Perimenopausal Female with Bilateral Ovarian Cysts - appointment with RESEARCH ELECTRICIAN next week - Patient should take US report to her RESEARCH ELECTRICIAN on follow up visit - Replans for vaginal dryness Dizziness 2/2 Dehydration Abdominal Pain 2/2 Constipation - Given fluids in ED; symptoms improved and patient does not endorse abdominal pain - Encourage increased water PO intake - Encourage proper fiber intake and diets with green vegetables - Colace for chronic constipation Case was discussed and reviewed with Attending Physician, Dr. Sanz. Thank you for the consult. <Rosie Sanz - Last Filed: 08/13/18 10:02> Meds - Medications Medications: Current Medications Acetaminophen (Tylenol 325mg Tab) 650 mg PO Q6 PRN PRN Reason: Pain, moderate (4-7) Albuterol/Ipratropium (Duoneb 3 Mg/0.5 Mg (3 Ml) Ud) 3 ml INH RQ4 PRN PRN Reason: Shortness of Breath Carbidopa/Levodopa (Sinemet) 1 tab PO DAILY PRN PRN Reason: Rigors Famotidine (Pepcid) 20 mg PO DAILY [facility] Last Admin: 08/11/18 11:19 Dose: 20 mg Dextrose/Sodium Chloride (Dextrose 5%/0.45% Ns 1000 Ml) 1,000 mls @ 100 mls/hr IV .Q10H [facility] Last Admin: 08/11/18 11:19 Dose: 100 mls/hr Ondansetron HCl (Zofran Inj) 4 mg IVP Q6 PRN PRN Reason: Nausea/Vomiting Zolpidem Tartrate (Ambien) 5 mg PO HS PRN PRN Reason: Insomnia Last Admin: 08/10/18 23:43 Dose: 5 mg Results - Vital Signs Recent Vital Signs: Last Vital Signs Temp 98.1 F 08/11/18 11:24 Pulse 51 L 08/11/18 11:24 Resp 17 08/11/18 11:24 BP 98/63 L 08/11/18 11:24 Pulse Ox 100 08/11/18 11:24 - Labs Result Diagrams: 08/11/18 04:08 08/11/18 04:08 Labs: Laboratory Results - last 24 hr 08/10/18 08/10/18 08/10/18 14:26 16:01 16:01 WBC 4.5 L RBC 4.01 Hgb 12.6 Hct 37.4 MCV 93.3 MCH 31.5 H MCHC 33.8 RDW 14.0 Plt Count 156 MPV 8.8 Neut % (Auto) 56.7 Lymph % (Auto) 32.1 Ashley % (Auto) 10.2 H Eos % (Auto) 0.5 Baso % (Auto) 0.5 Neut # (Auto) 2.6 Lymph # (Auto) 1.5 Ashley # (Auto) 0.5 Eos # (Auto) 0.0 Baso # (Auto) 0.0 Sodium 139 Potassium 4.2 Chloride 104 Carbon Dioxide 27 Anion Gap 13 BUN 14 Creatinine 0.6 L Est GFR ( Amer) > 60 Est GFR (Non-Af Amer) > 60 POC Glucose (mg/dL) 101 Random Glucose 83 Calcium 8.8 Total Bilirubin 0.5 AST 19 ALT 19 Alkaline Phosphatase 62 Total Protein 6.7 Albumin 3.7 Globulin 3.0 Albumin/Globulin Ratio 1.2 Lipase 137 CA 125 Antigen Urine Color Urine Clarity Urine pH Ur Specific Hooks Urine Protein Urine Glucose (UA) Urine Ketones Urine Blood Urine Nitrate Urine Bilirubin Urine Urobilinogen Ur Leukocyte Esterase Urine WBC (Auto) Urine RBC (Auto) Ur Squamous Epith Cells Urine HCG, Qual 08/10/18 08/11/18 08/11/18 16:34 04:08 04:08 WBC 5.6 RBC 3.80 Hgb 11.8 Hct 35.4 MCV 93.1 MCH 31.1 H MCHC 33.4 RDW 13.8 Plt Count 135 MPV 9.0 Neut % (Auto) 49.0 L Lymph % (Auto) 38.7 Ashley % (Auto) 10.9 H Eos % (Auto) 1.1 Baso % (Auto) 0.3 Neut # (Auto) 2.8 Lymph # (Auto) 2.2 Ashley # (Auto) 0.6 Eos # (Auto) 0.1 Baso # (Auto) 0.0 Sodium 139 Potassium 3.6 Chloride 108 H Carbon Dioxide 23 Anion Gap 11 BUN 10 Creatinine 0.6 L Est GFR ( Amer) > 60 Est GFR (Non-Af Amer) > 60 POC Glucose (mg/dL) Random Glucose 79 Calcium 8.2 L Total Bilirubin 0.5 AST 17 ALT 17 Alkaline Phosphatase 56 Total Protein 5.9 L Albumin 3.2 L Globulin 2.7 Albumin/Globulin Ratio 1.2 Lipase CA 125 Antigen < 5.5 Urine Color Colorless Urine Clarity Clear Urine pH 8.0 Ur Specific Hooks 1.002 L Urine Protein Negative Urine Glucose (UA) Normal Urine Ketones Negative Urine Blood Negative Urine Nitrate Negative Urine Bilirubin Negative Urine Urobilinogen Normal Ur Leukocyte Esterase Neg Urine WBC (Auto) < 1 Urine RBC (Auto) < 1 Ur Squamous Epith Cells 2 Urine HCG, Qual Negative 08/11/18 08/11/18 08/11/18 06:46 06:50 09:55 WBC RBC Hgb Hct MCV MCH MCHC RDW Plt Count MPV Neut % (Auto) Lymph % (Auto) Ashley % (Auto) Eos % (Auto) Baso % (Auto) Neut # (Auto) Lymph # (Auto) Ashley # (Auto) Eos # (Auto) Baso # (Auto) Sodium Potassium Chloride Carbon Dioxide Anion Gap BUN Creatinine Est GFR ( Amer) Est GFR (Non-Af Amer) POC Glucose (mg/dL) 68 79 62 L Random Glucose Calcium Total Bilirubin AST ALT Alkaline Phosphatase Total Protein Albumin Globulin Albumin/Globulin Ratio Lipase CA 125 Antigen Urine Color Urine Clarity Urine pH Ur Specific Hooks Urine Protein Urine Glucose (UA) Urine Ketones Urine Blood Urine Nitrate Urine Bilirubin Urine Urobilinogen Ur Leukocyte Esterase Urine WBC (Auto) Urine RBC (Auto) Ur Squamous Epith Cells Urine HCG, Qual 08/11/18 09:59 WBC RBC Hgb Hct MCV MCH MCHC RDW Plt Count MPV Neut % (Auto) Lymph % (Auto) Ashley % (Auto) Eos % (Auto) Baso % (Auto) Neut # (Auto) Lymph # (Auto) Ashley # (Auto) Eos # (Auto) Baso # (Auto) Sodium Potassium Chloride Carbon Dioxide Anion Gap BUN Creatinine Est GFR ( Amer) Est GFR (Non-Af Amer) POC Glucose (mg/dL) 62 L Random Glucose Calcium Total Bilirubin AST ALT Alkaline Phosphatase Total Protein Albumin Globulin Albumin/Globulin Ratio Lipase CA 125 Antigen Urine Color Urine Clarity Urine pH Ur Specific Hooks Urine Protein Urine Glucose (UA) Urine Ketones Urine Blood Urine Nitrate Urine Bilirubin Urine Urobilinogen Ur Leukocyte Esterase Urine WBC (Auto) Urine RBC (Auto) Ur Squamous Epith Cells Urine HCG, Qual Assessment & Plan - Assessment and Plan (Free Text) Assessment: Assessment: 1. Perimenopausal female 2. Significant Hx of Pelvic surgeries in the past with probable significant amount of scar tissue that may hurt upon or changing positions and pt aware 3. S/P Dizziness, PHILLIPS and Lightheadness complains on presentation that ressolved completely after IV hydration, per patient 4. Presently without any complaints or pains / Pelvic exam completely negative 5. Bilateral tiny ovarian cysts on US and essentially asymptomatic / Pt has appointment with her Wrecker Driver next week and will follow with him 6. Chronic constipation and drinks little to no water and not much fiber in her diet 7. Mild vaginal dryness and hot flushes c/w Perimenopausal state. 8. Stable and Satisfactory Environmental Protection Specialist condition at this time Plan: 1. Will f/up with her Wrecker Driver for further evaluation and treatment 2. Advised to increase po water intake as well as fiber in her diet 3. Advised to take Colace 100 mg po TID with lots of water 4. Advise to use Replens cream OTC intravaginally 3-5 x week to help with vaginal dryness 5. May take Motrin prn for ocassional pelvic pains that most likely be associated to her intra-abdominal scar tissue 6. Thanks for consultation. Will sign off at this time
--- NOTE | 2018-08-11 11:46 | CP.PCM.PN ---
Subjective - Date & Time of Evaluation Date of Evaluation: 08/11/18 Time of Evaluation: 09:00 Objective - Vital Signs/Intake and Output Vital Signs (last 24 hours): Temp Pulse Resp BP Pulse Ox 98.1 F 51 L 17 98/63 L 100 08/11/18 11:24 08/11/18 11:24 08/11/18 11:24 08/11/18 11:24 08/11/18 11:24 - Medications Medications: Current Medications Acetaminophen (Tylenol 325mg Tab) 650 mg PO Q6 PRN PRN Reason: Pain, moderate (4-7) Albuterol/Ipratropium (Duoneb 3 Mg/0.5 Mg (3 Ml) Ud) 3 ml INH RQ4 PRN PRN Reason: Shortness of Breath Carbidopa/Levodopa (Sinemet) 1 tab PO DAILY PRN PRN Reason: Rigors Famotidine (Pepcid) 20 mg PO DAILY [facility] Last Admin: 08/11/18 11:19 Dose: 20 mg Dextrose/Sodium Chloride (Dextrose 5%/0.45% Ns 1000 Ml) 1,000 mls @ 100 mls/hr IV .Q10H [facility] Last Admin: 08/11/18 11:19 Dose: 100 mls/hr Ondansetron HCl (Zofran Inj) 4 mg IVP Q6 PRN PRN Reason: Nausea/Vomiting Zolpidem Tartrate (Ambien) 5 mg PO HS PRN PRN Reason: Insomnia Last Admin: 08/10/18 23:43 Dose: 5 mg - Labs Labs: 08/11/18 04:08 08/11/18 04:08
--- NOTE | 2018-08-11 12:42 | US ---
Pelvic ultrasound HISTORY: Pelvic pain. COMPARISON: CT scan dated 08/11/2018 TECHNIQUE: Real-time sonography was performed through the pelvis utilizing transabdominal and transvaginal techniques. Findings: Uterus: 10.1 x 3.5 x 5.8 centimeters. Heterogeneous echotexture. Anteverted. Endometrium measures 7 millimeters, within normal limits. Small amount of free fluid within the pelvic cul-de-sac. Prominent bilateral uterine adnexal vessels which may represent a pelvic venous congestion syndrome. Clinical correlation. Right ovary: 3.2 x 1.7 x 2.5 centimeters. Normal flow. 2.0 x 1.2 x 2.1 centimeter prominent bilobed septated cyst at the level of the right ovary. Left ovary: 2.7 x 1.4 x 2.7 centimeters. Normal flow. Prominent multi septated cyst measuring 2.0 x 1.2 x 1.6 centimeters. Additional hypoechoic cyst measuring 1.3 x 0.9 x 1.2 centimeters. Impression: 1. Prominent bilateral uterine adnexal vessels which may represent a pelvic venous congestion syndrome. Clinical correlation. 2. Small amount of free fluid in the pelvic cul-de-sac. 3. Bilateral septated/mildly complex ovarian cysts. Interval follow-up ultrasound in a 4-6 week interval would be helpful for further evaluation if clinically indicated.
--- NOTE | 2018-08-11 12:51 | CP.PCM.CON ---
Past Patient History - Infectious Disease Hx of Infectious Diseases: None - Past Social History Smoking Status: Never Smoked - PULMONARY Hx Asthma: Yes - NEUROLOGICAL Hx Parkinson's Disease: Yes - HEMATOLOGICAL/ONCOLOGICAL Hx Hepatitis B: Yes Other/Comment: Hepatitis - MUSCULOSKELETAL/RHEUMATOLOGICAL Hx Osteoporosis: Yes - PSYCHIATRIC Hx Substance Use: No - SURGICAL HISTORY Hx Section: Yes (x3) - ANESTHESIA Hx Anesthesia: Yes Hx Anesthesia Reactions: No Meds Allergies/Adverse Reactions: Allergies Allergy/AdvReac Type Severity Reaction Status Date / Time budesonide [From Pulmicort] Allergy Verified 01/03/17 02:15 ciprofloxacin Allergy THROAT Verified 01/04/17 14:42 CLOSING, TINGLING, CONSTRICTION latex Allergy Verified 01/03/17 02:15 morphine Allergy Verified 01/03/17 02:15 - Medications Medications: Current Medications Acetaminophen (Tylenol 325mg Tab) 650 mg PO Q6 PRN PRN Reason: Pain, moderate (4-7) Albuterol/Ipratropium (Duoneb 3 Mg/0.5 Mg (3 Ml) Ud) 3 ml INH RQ4 PRN PRN Reason: Shortness of Breath Carbidopa/Levodopa (Sinemet) 1 tab PO DAILY PRN PRN Reason: Rigors Famotidine (Pepcid) 20 mg PO DAILY CÉSAR Last Admin: 08/11/18 11:19 Dose: 20 mg Dextrose/Sodium Chloride (Dextrose 5%/0.45% Ns 1000 Ml) 1,000 mls @ 100 mls/hr IV .Q10H CÉSAR Last Admin: 08/11/18 11:19 Dose: 100 mls/hr Ondansetron HCl (Zofran Inj) 4 mg IVP Q6 PRN PRN Reason: Nausea/Vomiting Zolpidem Tartrate (Ambien) 5 mg PO HS PRN PRN Reason: Insomnia Last Admin: 08/10/18 23:43 Dose: 5 mg Results - Vital Signs Recent Vital Signs: Last Vital Signs Temp 98.1 F 08/11/18 11:24 Pulse 51 L 08/11/18 11:24 Resp 17 08/11/18 11:24 BP 98/63 L 08/11/18 11:24 Pulse Ox 100 08/11/18 11:24 - Labs Result Diagrams: 08/11/18 04:08 08/11/18 04:08 Labs: Laboratory Results - last 24 hr 08/10/18 08/10/18 08/10/18 14:26 16:01 16:01 WBC 4.5 L RBC 4.01 Hgb 12.6 Hct 37.4 MCV 93.3 MCH 31.5 H MCHC 33.8 RDW 14.0 Plt Count 156 MPV 8.8 Neut % (Auto) 56.7 Lymph % (Auto) 32.1 Park % (Auto) 10.2 H Eos % (Auto) 0.5 Baso % (Auto) 0.5 Neut # (Auto) 2.6 Lymph # (Auto) 1.5 Park # (Auto) 0.5 Eos # (Auto) 0.0 Baso # (Auto) 0.0 Sodium 139 Potassium 4.2 Chloride 104 Carbon Dioxide 27 Anion Gap 13 BUN 14 Creatinine 0.6 L Est GFR ( Amer) > 60 Est GFR (Non-Af Amer) > 60 POC Glucose (mg/dL) 101 Random Glucose 83 Calcium 8.8 Total Bilirubin 0.5 AST 19 ALT 19 Alkaline Phosphatase 62 Total Protein 6.7 Albumin 3.7 Globulin 3.0 Albumin/Globulin Ratio 1.2 Lipase 137 CA 125 Antigen Urine Color Urine Clarity Urine pH Ur Specific Ronda Urine Protein Urine Glucose (UA) Urine Ketones Urine Blood Urine Nitrate Urine Bilirubin Urine Urobilinogen Ur Leukocyte Esterase Urine WBC (Auto) Urine RBC (Auto) Ur Squamous Epith Cells Urine HCG, Qual 08/10/18 08/11/18 08/11/18 16:34 04:08 04:08 WBC 5.6 RBC 3.80 Hgb 11.8 Hct 35.4 MCV 93.1 MCH 31.1 H MCHC 33.4 RDW 13.8 Plt Count 135 MPV 9.0 Neut % (Auto) 49.0 L Lymph % (Auto) 38.7 Park % (Auto) 10.9 H Eos % (Auto) 1.1 Baso % (Auto) 0.3 Neut # (Auto) 2.8 Lymph # (Auto) 2.2 Park # (Auto) 0.6 Eos # (Auto) 0.1 Baso # (Auto) 0.0 Sodium 139 Potassium 3.6 Chloride 108 H Carbon Dioxide 23 Anion Gap 11 BUN 10 Creatinine 0.6 L Est GFR ( Amer) > 60 Est GFR (Non-Af Amer) > 60 POC Glucose (mg/dL) Random Glucose 79 Calcium 8.2 L Total Bilirubin 0.5 AST 17 ALT 17 Alkaline Phosphatase 56 Total Protein 5.9 L Albumin 3.2 L Globulin 2.7 Albumin/Globulin Ratio 1.2 Lipase CA 125 Antigen < 5.5 Urine Color Colorless Urine Clarity Clear Urine pH 8.0 Ur Specific Ronda 1.002 L Urine Protein Negative Urine Glucose (UA) Normal Urine Ketones Negative Urine Blood Negative Urine Nitrate Negative Urine Bilirubin Negative Urine Urobilinogen Normal Ur Leukocyte Esterase Neg Urine WBC (Auto) < 1 Urine RBC (Auto) < 1 Ur Squamous Epith Cells 2 Urine HCG, Qual Negative 08/11/18 08/11/18 08/11/18 06:46 06:50 09:55 WBC RBC Hgb Hct MCV MCH MCHC RDW Plt Count MPV Neut % (Auto) Lymph % (Auto) Park % (Auto) Eos % (Auto) Baso % (Auto) Neut # (Auto) Lymph # (Auto) Park # (Auto) Eos # (Auto) Baso # (Auto) Sodium Potassium Chloride Carbon Dioxide Anion Gap BUN Creatinine Est GFR ( Amer) Est GFR (Non-Af Amer) POC Glucose (mg/dL) 68 79 62 L Random Glucose Calcium Total Bilirubin AST ALT Alkaline Phosphatase Total Protein Albumin Globulin Albumin/Globulin Ratio Lipase CA 125 Antigen Urine Color Urine Clarity Urine pH Ur Specific Ronda Urine Protein Urine Glucose (UA) Urine Ketones Urine Blood Urine Nitrate Urine Bilirubin Urine Urobilinogen Ur Leukocyte Esterase Urine WBC (Auto) Urine RBC (Auto) Ur Squamous Epith Cells Urine HCG, Qual 08/11/18 09:59 WBC RBC Hgb Hct MCV MCH MCHC RDW Plt Count MPV Neut % (Auto) Lymph % (Auto) Park % (Auto) Eos % (Auto) Baso % (Auto) Neut # (Auto) Lymph # (Auto) Park # (Auto) Eos # (Auto) Baso # (Auto) Sodium Potassium Chloride Carbon Dioxide Anion Gap BUN Creatinine Est GFR ( Amer) Est GFR (Non-Af Amer) POC Glucose (mg/dL) 62 L Random Glucose Calcium Total Bilirubin AST ALT Alkaline Phosphatase Total Protein Albumin Globulin Albumin/Globulin Ratio Lipase CA 125 Antigen Urine Color Urine Clarity Urine pH Ur Specific Ronda Urine Protein Urine Glucose (UA) Urine Ketones Urine Blood Urine Nitrate Urine Bilirubin Urine Urobilinogen Ur Leukocyte Esterase Urine WBC (Auto) Urine RBC (Auto) Ur Squamous Epith Cells Urine HCG, Qual Assessment & Plan - Assessment and Plan (Free Text) Assessment: Assessment: 1. Perimenopausal female 2. Significant Hx of Pelvic surgeries in the past with probable significant amount of scar tissue that may hurt upon or changing positions and pt aware 3. S/P Dizziness, PHILLIPS and Lightheadness complains on presentation that ressolved completely after IV hydration, per patient 4. Presently without any complaints or pains / Pelvic exam completely negative 5. Bilateral tiny ovarian cysts on US and essentially asymptomatic / Pt has appointment with her Aircraft Hydraulic Equipment Mechanic next week and will follow with him 6. Chronic constipation and drinks little to no water and not much fiber in her diet 7. Mild vaginal dryness and hot flushes c/w Perimenopausal state. 8. 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 Will f/up with her Aircraft Hydraulic Equipment Mechanic for further evaluation and treatment 2. Advised to increase po water intake as well as fiber in her diet 3. Advised to take Colace 100 mg po TID with lots of water 4. Advise to use Replens cream OTC intravaginally 3-5 x week to help with vaginal dryness 5. May take Motrin prn for ocassional pelvic pains that most likely be associated to her intra-abdominal scar tissue 6. Thanks for consultation. Will sign off at this time
--- NOTE | 2018-08-11 13:48 | CP.PCM.DIS ---
<Soco Shields - Last Filed: 08/11/18 14:13> Provider - Provider Date of Admission: 08/10/18 20:29 Attending physician: Himanshu Germain MD Consults: Dr. Sanz-Roll Form Operator Dr. Saucedo-surgery Time Spent in preparation of Discharge (in minutes): 29 Diagnosis - Discharge Diagnosis (1) Abdominal pain Status: Acute (2) Dehydration Status: Acute Hospital Course - Lab Results Lab Results: Most Recent Lab Values WBC 5.6 K/uL (4.8-10.8) 08/11/18 04:08 RBC 3.80 Mil/uL (3.80-5.20) 08/11/18 04:08 Hgb 11.8 g/dL (11.0-16.0) 08/11/18 04:08 Hct 35.4 % (34.0-47.0) 08/11/18 04:08 MCV 93.1 fL (81.0-99.0) 08/11/18 04:08 MCH 31.1 pg (27.0-31.0) H 08/11/18 04:08 MCHC 33.4 g/dL (33.0-37.0) 08/11/18 04:08 RDW 13.8 % (11.5-14.5) 08/11/18 04:08 Plt Count 135 K/uL (130-400) 08/11/18 04:08 MPV 9.0 fL (7.2-11.7) 08/11/18 04:08 Neut % (Auto) 49.0 % (50.0-75.0) L 08/11/18 04:08 Lymph % (Auto) 38.7 % (20.0-40.0) 08/11/18 04:08 [place] % (Auto) 10.9 % (0.0-10.0) H 08/11/18 04:08 Eos % (Auto) 1.1 % (0.0-4.0) 08/11/18 04:08 Baso % (Auto) 0.3 % (0.0-2.0) 08/11/18 04:08 Neut # (Auto) 2.8 K/uL (1.8-7.0) 08/11/18 04:08 Lymph # (Auto) 2.2 K/uL (1.0-4.3) 08/11/18 04:08 [place] # (Auto) 0.6 K/uL (0.0-0.8) 08/11/18 04:08 Eos # (Auto) 0.1 K/uL (0.0-0.7) 08/11/18 04:08 Baso # (Auto) 0.0 K/uL (0.0-0.2) 08/11/18 04:08 Sodium 139 mmol/L (132-148) 08/11/18 04:08 Potassium 3.6 mmol/L (3.6-5.2) 08/11/18 04:08 Chloride 108 mmol/L (98-107) H 08/11/18 04:08 Carbon Dioxide 23 mmol/L (22-30) 08/11/18 04:08 Anion Gap 11 (10-20) 08/11/18 04:08 BUN 10 mg/dL (7-17) 08/11/18 04:08 Creatinine 0.6 mg/dL (0.7-1.2) L 08/11/18 04:08 Est GFR ( Amer) > 60 08/11/18 04:08 Est GFR (Non-Af Amer) > 60 08/11/18 04:08 POC Glucose (mg/dL) 62 mg/dL (65-110) L 08/11/18 09:59 Random Glucose 79 mg/dL (65-105) 08/11/18 04:08 Calcium 8.2 mg/dl (8.6-10.4) L 08/11/18 04:08 Total Bilirubin 0.5 mg/dL (0.2-1.3) 08/11/18 04:08 AST 17 U/L (14-36) 08/11/18 04:08 ALT 17 U/L (9-52) 08/11/18 04:08 Alkaline Phosphatase 56 U/L (38-126) 08/11/18 04:08 Total Protein 5.9 g/dL (6.3-8.3) L 08/11/18 04:08 Albumin 3.2 g/dL (3.5-5.0) L 08/11/18 04:08 Globulin 2.7 gm/dL (2.2-3.9) 08/11/18 04:08 Albumin/Globulin Ratio 1.2 (1.0-2.1) 08/11/18 04:08 Lipase 137 U/L (23-300) 08/10/18 16:01 CA 125 Antigen < 5.5 U/mL (0-35) 08/11/18 04:08 Urine Color Colorless (YELLOW) 08/10/18 16:34 Urine Clarity Clear (Clear) 08/10/18 16:34 Urine pH 8.0 (5.0-8.0) 08/10/18 16:34 Ur Specific [place] 1.002 (1.003-1.030) L 08/10/18 16:34 Urine Protein Negative mg/dL (NEGATIVE) 08/10/18 16:34 Urine Glucose (UA) Normal mg/dL (Normal) 08/10/18 16:34 Urine Ketones Negative mg/dL (NEGATIVE) 08/10/18 16:34 Urine Blood Negative (NEGATIVE) 08/10/18 16:34 Urine Nitrate Negative (NEGATIVE) 08/10/18 16:34 Urine Bilirubin Negative (NEGATIVE) 08/10/18 16:34 Urine Urobilinogen Normal mg/dL (0.2-1.0) 08/10/18 16:34 Ur Leukocyte Esterase Neg Blaise/uL (Negative) 08/10/18 16:34 Urine WBC (Auto) < 1 /hpf (0-5) 08/10/18 16:34 Urine RBC (Auto) < 1 /hpf (0-3) 08/10/18 16:34 Ur Squamous Epith Cells 2 /hpf (0-5) 08/10/18 16:34 Urine HCG, Qual Negative (NEGATIVE) 08/10/18 16:34 - Hospital Course Hospital Course: Pt was evaluated and treated at [facility] from 08/10/18-08/11/18. Pt presented with complaints of dizziness and abdominal/pelvic pain. Blood work showed no leukocytosis. Vitals WNL. Pt was hydrated w/ NS and dizziness resolved. CT abd/pelvis revealed pelvic congestion, B/L cysts, and a non obstructing renal calculus. The appendix was mildly dilated at 8-9mm, and some chris-appendiceal inflammatory changes seen. Dr. Saucedo was consulted for Surgery. Patient was monitored and now no longer complains of abdominal pain. Dr. Sanz was consulted for Roll Form Operator. Trans-vaginal US was consistent with finding of pelvic congestion. Patient is stable for discharge home, to follow up with PMD outpatient. She will be given a prescription for Augmenting 875/125mg PO BID for 5 days. HPI on admission: "Pt is a 48F PMH parkinsons, asthma, osteoporosis who presents to ED c/o dizziness for 3 months that worsened today. She reports feeling dizzy when she gets up from bed in the morning but today it was worse and she experienced it when she was walking. She felt like she was moving left to right, back and forth. She denies any vision changes or headache. She reports not eating during the day, only having one meal at night. She also reports decreased water intake. She also complains of RLQ abdominal pain x3 months, that presents as a sharp pulsating pain for two seconds. She also reports going through menopause, and having irregular menses that are sometimes one week long, and sometimes just light spotting. Her PMD requested a TVUS which she has not yet had." Refer to EMR for full course of events Discharge Exam - Head Exam Head Exam: ATRAUMATIC, NORMAL INSPECTION, NORMOCEPHALIC - Eye Exam Eye Exam: EOMI, Normal appearance - ENT Exam ENT Exam: Mucous Membranes Moist, Normal Exam - Neck Exam Neck exam: Normal Inspection - Respiratory Exam Respiratory Exam: Clear to PA & Lateral, NORMAL BREATHING PATTERN, UNREMARKABLE - Cardiovascular Exam Cardiovascular Exam: REGULAR RHYTHM, +S1, +S2 - GI/Abdominal Exam GI & Abdominal Exam: Normal Bowel Sounds, Soft, Unremarkable. absent: Tenderness - Extremities Exam Extremities exam: normal inspection - Back Exam Back exam: absent: CVA tenderness (L) - Neurological Exam Neurological exam: Alert, Normal Gait, Oriented x3 - Psychiatric Exam Psychiatric exam: Normal Affect, Normal Mood - Skin Skin Exam: Dry, Intact, Normal Color, Warm Discharge Plan - Discharge Medications Prescriptions: Amoxicillin/Clavulanate [Augmentin 875 MG-125 MG] 1 tab PO BID #10 tab - Follow Up Plan Condition: FAIR Disposition: HOME/ ROUTINE Instructions: Dehydration, Adult (DC), Acute Abdomen (Belly Pain), Adult (DC) Additional Instructions: Patient is stable for discharge home. Patient is being given a prescription for Augmentin, to be take twice daily; once in the morning and once in the evening. Patient is to take all medication as prescribed until finished. Patient is advised to stay well hydrated to prevent dizziness. Patient is advised to follow up with her PMD for GI referral and Roll Form Operator within 2 weeks of discharge. Patient is instructed to return to the ED immediately with any worsening of symptoms. <MitchellParesh H - Last Filed: 08/11/18 15:08> Provider - Provider Date of Admission: 08/10/18 20:29 Attending physician: Himanshu Germain MD Hospital Course - Lab Results Lab Results: Most Recent Lab Values WBC 5.6 K/uL (4.8-10.8) 08/11/18 04:08 RBC 3.80 Mil/uL (3.80-5.20) 08/11/18 04:08 Hgb 11.8 g/dL (11.0-16.0) 08/11/18 04:08 Hct 35.4 % (34.0-47.0) 08/11/18 04:08 MCV 93.1 fL (81.0-99.0) 08/11/18 04:08 MCH 31.1 pg (27.0-31.0) H 08/11/18 04:08 MCHC 33.4 g/dL (33.0-37.0) 08/11/18 04:08 RDW 13.8 % (11.5-14.5) 08/11/18 04:08 Plt Count 135 K/uL (130-400) 08/11/18 04:08 MPV 9.0 fL (7.2-11.7) 08/11/18 04:08 Neut % (Auto) 49.0 % (50.0-75.0) L 08/11/18 04:08 Lymph % (Auto) 38.7 % (20.0-40.0) 08/11/18 04:08 [place]uster % (Auto) 10.9 % (0.0-10.0) H 08/11/18 04:08 Eos % (Auto) 1.1 % (0.0-4.0) 08/11/18 04:08 Baso % (Auto) 0.3 % (0.0-2.0) 08/11/18 04:08 Neut # (Auto) 2.8 K/uL (1.8-7.0) 08/11/18 04:08 Lymph # (Auto) 2.2 K/uL (1.0-4.3) 08/11/18 04:08 [place] # (Auto) 0.6 K/uL (0.0-0.8) 08/11/18 04:08 Eos # (Auto) 0.1 K/uL (0.0-0.7) 08/11/18 04:08 Baso # (Auto) 0.0 K/uL (0.0-0.2) 08/11/18 04:08 Sodium 139 mmol/L (132-148) 08/11/18 04:08 Potassium 3.6 mmol/L (3.6-5.2) 08/11/18 04:08 Chloride 108 mmol/L (98-107) H 08/11/18 04:08 Carbon Dioxide 23 mmol/L (22-30) 08/11/18 04:08 Anion Gap 11 (10-20) 08/11/18 04:08 BUN 10 mg/dL (7-17) 08/11/18 04:08 Creatinine 0.6 mg/dL (0.7-1.2) L 08/11/18 04:08 Est GFR ( Amer) > 60 08/11/18 04:08 Est GFR (Non-Af Amer) > 60 08/11/18 04:08 POC Glucose (mg/dL) 82 mg/dL (65-110) 08/11/18 14:01 Random Glucose 79 mg/dL (65-105) 08/11/18 04:08 Calcium 8.2 mg/dl (8.6-10.4) L 08/11/18 04:08 Total Bilirubin 0.5 mg/dL (0.2-1.3) 08/11/18 04:08 AST 17 U/L (14-36) 08/11/18 04:08 ALT 17 U/L (9-52) 08/11/18 04:08 Alkaline Phosphatase 56 U/L (38-126) 08/11/18 04:08 Total Protein 5.9 g/dL (6.3-8.3) L 08/11/18 04:08 Albumin 3.2 g/dL (3.5-5.0) L 08/11/18 04:08 Globulin 2.7 gm/dL (2.2-3.9) 08/11/18 04:08 Albumin/Globulin Ratio 1.2 (1.0-2.1) 08/11/18 04:08 Lipase 137 U/L (23-300) 08/10/18 16:01 CA 125 Antigen < 5.5 U/mL (0-35) 08/11/18 04:08 Urine Color Colorless (YELLOW) 08/10/18 16:34 Urine Clarity Clear (Clear) 08/10/18 16:34 Urine pH 8.0 (5.0-8.0) 08/10/18 16:34 Ur Specific [place] 1.002 (1.003-1.030) L 08/10/18 16:34 Urine Protein Negative mg/dL (NEGATIVE) 08/10/18 16:34 Urine Glucose (UA) Normal mg/dL (Normal) 08/10/18 16:34 Urine Ketones Negative mg/dL (NEGATIVE) 08/10/18 16:34 Urine Blood Negative (NEGATIVE) 08/10/18 16:34 Urine Nitrate Negative (NEGATIVE) 08/10/18 16:34 Urine Bilirubin Negative (NEGATIVE) 08/10/18 16:34 Urine Urobilinogen Normal mg/dL (0.2-1.0) 08/10/18 16:34 Ur Leukocyte Esterase Neg Blaise/uL (Negative) 08/10/18 16:34 Urine WBC (Auto) < 1 /hpf (0-5) 08/10/18 16:34 Urine RBC (Auto) < 1 /hpf (0-3) 08/10/18 16:34 Ur Squamous Epith Cells 2 /hpf (0-5) 08/10/18 16:34 Urine HCG, Qual Negative (NEGATIVE) 08/10/18 16:34 Attending/Attestation - Attestation I have personally seen and examined this patient.: Yes I have fully participated in the care of the patient.: Yes I have reviewed all pertinent clinical information, including history, physical exam and plan: Yes Notes (Text): 08/11/18 15:08 Medical attending: Patient was seen and examined by me, I reviewed the above note by chief medical technologist And agree with the above note When we came and saw the patient she did in the emergency room this entire time. She is abdominal pain-free, she denied having chest pain, she reported no nausea and no vomiting. She says that she did not come in for abdominal pain but that actually she came in with headache that has since then resolve all she's gotten some intravenous fluids. In the emergency room she had a CAT scan which was suggested that she may or may not have appendicitis and that it was difficult to say. On physical exam we really pressed hard in the right lower quadrant and she did not have any pain whatsoever. She does not have white blood cell count, the repeat CBC does not show an increase in the WBC. She has been afebrile during this entire time and she is not having any difficulty walking. So at this time we will discharge the patient, we advised her that as a precaution we'll give her an Rx for antibiotics however should she develop abdominal pain she should come back to the hospital. We explained to her that her lab work looks stable and because she wasn't having pain we thought that perhaps the CT scan was an overread, nevertheless we will give her antibiotics by mouth and explained to her that in case she develops abdominal pain that she should return to the hospital. We used a mobile web application developer to help explain this to the patient. thank you Paresh Mitchell
[2018-08-11 14:08] VITALS: BP 92/58; PULSE 61; RESP 18; O2SAT 98
--- NOTE | 2018-08-11 23:05 | CARD ---
APPROVED REPORT Date of service: 08/10/2018 EKG Measurement Heart [id number] <Conclusion> Sinus bradycardia Low voltage QRS Borderline ECG
--- NOTE | 2018-08-13 10:54 | CP.PCM.CON ---
History of Present Illness - History of Present Illness History of Present Illness: Allan Christianson, PGY1 EDUCATION INSTRUCTOR Consult Note for Dr. Sanz Patient is a 48 y/o F with PMHx of Parkinson's disease (diagnosed 10 years) who presented to the ED complaining of dizziness and mild abdominal pain. In the ED, CT abd/pelvis indicated mildly dilated appendix with prominent adnexal vasculature. EDUCATION INSTRUCTOR was consulted for possible pelvic congestion syndrome. Patient evaluated in the ED. Patient's dizziness started one week ago when patient stands up. It is worsened by standing and turning neck to the left. Patient's abdominal pain has been on and off for the past 3 months. Patient has not took anything for abdominal pain and has not seen any specialists for the pain. She endorses mild headache, hot flashes, chills, and constipation. Denies shortness of breath, cp, fever, weight changes, n/v/d, dysuria, increased urin megan frequency, and vaginal bleeding. Patient indicates she has not been drinking much water recently. A full 12 point ROS was conducted and unremarkable except as stated above. Past GynHx: menarche at age 14. Periods occur 28-30 days interval and last 5-6 days in duration; with occasional menorrhagia. This year her periods have become irregular, occurring every 2 months. Last menstrual period was in the beginning of May. Latest pap smear was normal (1.5 months ago). Negative HPV testing. No history of STI. Previous UTI and was given ciprofloxacin as outpatient. Past OBHx: . History of 3 c-sections and a previous pre-eclampsia. One missed in which she had a D&C. She had miscarriage at 7 months gestational age. She had one set of twin deliveries that were delivered v aginally and as neonates. She had one delivery at 6 months gestation. As per prior charting: PMHx: Parkinson's disease SHx: 3 c-sections, D&C FamHx: dad , Etoh-pancreatitis SocHx: denies tobacco, alcohol, recreational drug use Meds: sinimet Allergies: budenoside, cipro, latex, morphine PMD: Horacio Review of Systems - Review of Systems All systems: reviewed and no additional remarkable complaints except (as per HPI.) Past Patient History - Infectious Disease Hx of Infectious Diseases: None - Past Social History Smoking Status: Never Smoked - PULMONARY Hx Asthma: Yes - NEUROLOGICAL Hx Parkinson's Disease: Yes - HEMATOLOGICAL/ONCOLOGICAL Hx Hepatitis B: Yes Other/Comment: Hepatitis - MUSCULOSKELETAL/RHEUMATOLOGICAL Hx Osteoporosis: Yes - PSYCHIATRIC Hx Substance Use: No - SURGICAL HISTORY Hx Section: Yes (x3) - ANESTHESIA Hx Anesthesia: Yes Hx Anesthesia Reactions: No Meds Home Medications: Home Medication List Medication Instructions Recorded Confirmed Type Amoxicillin/Clavulanate [Augmentin 1 tab PO BID #10 tab 08/11/18 Rx 875 MG-125 MG] Allergies/Adverse Reactions: Allergies Allergy/AdvReac Type Severity Reaction Status Date / Time budesonide [From Pulmicort] Allergy Verified 08/11/18 22:36 ciprofloxacin Allergy THROAT Verified 08/11/18 22:36 CLOSING, TINGLING, CONSTRICTION latex Allergy Verified 08/11/18 22:36 morphine Allergy Verified 08/11/18 22:36 Physical Exam - Constitutional Appears: Well, No Acute Distress - Head Exam Head Exam: ATRAUMATIC, NORMAL INSPECTION, NORMOCEPHALIC - Eye Exam Eye Exam: EOMI, Normal appearance, PERRL Pupil Exam: NORMAL ACCOMODATION, PERRL - ENT Exam ENT Exam: Mucous Membranes Moist, Normal Exam - Neck Exam Neck exam: Positive for: Normal Inspection - Respiratory Exam Respiratory Exam: Clear to Auscultation Bilateral, NORMAL BREATHING PATTERN. absent: Chest Wall Tenderness, Rales, Rhonchi, Wheezes, Respiratory Distress - Cardiovascular Exam Cardiovascular Exam: REGULAR RHYTHM, +S1, +S2. absent: Systolic Murmur - GI/Abdominal Exam GI & Abdominal Exam: Normal Bowel Sounds, Soft. absent: Firm, Guarding, Orga nomegaly, Rebound, Rigid, Tenderness Additional comments: No tenderness to palpation of the abdomen. - Exam External exam: NORMAL EXTERNAL EXAM Speculum exam: NORMAL SPECULUM EXAM. absent: Cervical Discharge, Foreign Body, Laceration, Vaginal Bleeding, Vaginal Discharge Bimanual exam: NORMAL BIMANUAL EXAM. absent: Adenexal Mass, Cervical Motion Tendernes, Uterine Enlargement, Uterine Tenderness Additional comments: Upon speculum exam, patient has retroverted uterus. No nodules, masses, or cysts appreciated. No bleeding or discharge noted. - Extremities Exam Extremities exam: Positive for: normal inspection, pedal pulses present - Back Exam Back exam: NORMAL INSPECTION - Skin Skin Exam: Dry, Intact, Normal Color, Warm Results - Vital Signs Recent Vital Signs: Last Vital Signs Temp 98.1 F 08/11/18 14:07 Pulse 61 08/11/18 14:07 Resp 18 08/11/18 14:07 BP 92/58 L 08/11/18 14:07 Pulse Ox 98 08/11/18 14:07 - Labs Result Diagrams: 08/11/18 04:08 08/11/18 04:08 Assessment & Plan - Assessment and Plan (Free Text) Assessment: Patient is a 48 y/o F with PMHx of Parkinson's disease (diagnosed 10 years) who presented to the ED complaining of dizziness and mild abdominal pain. CT abd/pelvis showed mildly dilated appendix and prominent adnexal vasculature. The EDUCATION INSTRUCTOR team was consulted for possible pelvic congestion syndrome noted on imaging. Assessment: 1. Perimenopausal female 2. Significant Hx of Pelvic surgeries in the past with probable significant amount of scar tissue that may hurt upon or changing positions and pt aware 3. S/P Dizziness, PHILLIPS and Lightheadness complains on presentation that resolved completely after IV hydration, per patient 4. Presently without any complaints or pains / Pelvic exam completely negative 5. Bilateral tiny ovarian cysts on US and essentially asymptomatic / Pt has ap pointment with her Commercial Sales Manager next week and will follow with him 6. Chronic constipation and drinks little to no water and not much fiber in her diet 7. Mild vaginal dryness and hot flushes c/w Perimenopausal state. 8. Stable and Satisfactory Cnc Manager condition at this time 9. Thank you for the consultation. OBGYN team will sign off. Plan: Perimenopausal Female with Bilateral Ovarian Cysts - appointment with AMPOULE WASHING MACHINE OPERATOR next week - Patient should take US report to her AMPOULE WASHING MACHINE OPERATOR on follow up visit - Replans for vaginal dryness Dizziness 2/2 Dehydration Abdominal Pain 2/2 Constipation - Given fluids in ED; symptoms improved and patient does not endorse abdominal pain - Encourage increased water PO intake - Encourage proper fiber intake and diets with green vegetables - Colace for chronic constipation Case was discussed and reviewed with Attending Physician, Dr. Sanz. See Attending Note below. Thank you for the consult. Please note that this consult was done on 08/11/18, however, because of electron health record error, this note had to be redone on 08/13. Plan: 1. Will f/up with her Commercial Sales Manager for further evaluation and treatment 2. Advised to increase po water intake as well as fiber in her diet 3. Advised to take Colace 100 mg po TID with lots of water 4. Advise to use Replens cream OTC intravaginally 3-5 x week to help with vaginal dryness 5. May take Motrin prn for ocassional pelvic pains that most likely be associated to her intra-abdominal scar tissue 6. Thanks for consultation. Will sign off at this time - Date & Time Date: 08/11/18 Time: 11:30
== END 2018-08-11 17:35 | disposition home or self-care (01) ==
LOC: C.ER 14:08 → C.9E 20:29 → C.3T 08-11 15:39 → C.9E 08-11 17:32
PROVIDERS: ADMIT Family Medicine; ATTEND Family Medicine
DX: E86.0 Dehydration (principal); J45.909 Unspecified asthma, uncomplicated; K59.09 Other constipation; M81.0 Age-related osteoporosis without current pathological fracture; N20.0 Calculus of kidney; N92.6 Irregular menstruation, unspecified; N94.89 Other specified conditions associated with female genital organs and menstrual cycle; N95.1 Menopausal and female climacteric states; Z87.440 Personal history of urinary (tract) infections
CPT/HCPCS: 74176; 74177; 76830; 76856; 80053; 81001; 82948; 83690; 84703; 85025; 86304; 93005; 96360; 96361; 99285; G0378; J7030; J7042; Q9966

== ENCOUNTER 2018-08-11 22:15 | Emergency (ER) | payer MEDICARE, MEDICAID ==
--- NOTE | 2018-08-11 22:55 | C.PDOC ---
History Of Present Illness 48 year old female presents to the ED c/o abdominal pain that started today after eating. Patient was seen in the ED yesterday for abdominal pain, patient had a full work up with blood work, CT scan and Pelvic US. Patient admitted to observation and was seen by OB, surgery coupon redemption clerk. Patient had repeated CT scan, lab work. There was no need for surgical intervention at that time and patient was D/C home with instructions to follow a liquid diet, high fiber and was prescribed colace. However upon returning home patient states felt hungry and "ate a very large meal". Patient states her pain is now located in her epigastric region. Patient denies fever, chills, nausea, vomit, diarrhea, vaginal bleeding, vaginal discharge, back pain. Time Seen by Provider: 08/11/18 22:39 Chief Complaint (Nursing): Abdominal Pain History Per: Patient History/Exam Limitations: no limitations Onset/Duration Of Symptoms: Hrs Current Symptoms Are (Timing): Still Present Context: Food Location Of Pain/Discomfort: RUQ, Epigastric Radiation Of Pain To:: None Quality Of Discomfort: "Pain" Associated Symptoms: denies: Nausea, Vomiting, Diarrhea, Constipation, Urinary Symptoms Exacerbating Factors: Food Alleviating Factors: None Recent travel outside of the [place]: No Additional History Per: Patient Abnormal Vaginal Bleeding: No Past Medical History Reviewed: Historical Data, Nursing Documentation, Vital Signs Vital Signs: Last Vital Signs Temp 97.8 F 08/11/18 22:31 Pulse 62 08/11/18 22:31 Resp 18 08/11/18 22:31 BP 98/67 L 08/11/18 22:31 Pulse Ox 98 08/11/18 22:31 - Medical History PMH: Asthma, Osteoporosis, Parkinson's Disease Surgical History: No Surg Hx Family History: States: Unknown Family Hx - Social History Hx Tobacco Use: No Hx Alcohol Use: No Hx Substance Use: No - Immunization History Hx Tetanus Toxoid Vaccination: No Hx Influenza Vaccination: Yes Hx Pneumococcal Vaccination: No Review Of Systems Constitutional: Negative for: Fever, Chills Cardiovascular: Negative for: Chest Pain Respiratory: Negative for: Shortness of Breath Gastrointestinal: Positive for: Abdominal Pain. Negative for: Nausea, Vomiting, Diarrhea Genitourinary: Negative for: Dysuria, Hematuria, Vaginal Discharge, Vaginal Bleeding Musculoskeletal: Negative for: Back Pain Neurological: Negative for: Weakness, Numbness Physical Exam - Physical Exam Appears: Non-toxic, No Acute Distress Skin: Normal Color, Warm, Dry Head: Atraumatic, Normacephalic Eye(s): bilateral: Normal Inspection Oral Mucosa: Moist Neck: Normal ROM, Supple Chest: Symmetrical Cardiovascular: Rhythm Regular Respiratory: Normal Breath Sounds, No Rales, No Rhonchi, No Wheezing Gastrointestinal/Abdominal: Soft, Tenderness (epigastric, RUQ), No Guarding, No Rebound, Other (No escobar's sign, RLQ or periumbilical tenderness) Back: No CVA Tenderness Extremity: Normal ROM, No Tenderness, No Swelling Neurological/Psych: Oriented x3, Normal Speech, Normal Cognition Gait: Steady ED Course And Treatment - Laboratory Results Result Diagrams: 08/11/18 23:51 08/11/18 23:51 O2 Sat by Pulse Oximetry: 98 (ON RA) Pulse Ox Interpretation: Normal Progress Note: Plan: - Maalox 30 ml PO. - Pepcid 20 mg IVP. - LAbs. Patient's labs were repeated and were unchanged from yesterdays visit. Patient while in the ED is in NAD, sleeping comfortably.on examinaion of the abdomen, pt is pain free, abdomen soft , NT. Pt had BM while in ED and feels better. Patient was advised to follow the instrcutions given upon D/C yesterday and to follow up with GI and OBGYN. Return instructions als discussed again with pt who understands and agrees with plan. Disposition Counseled Patient/Family Regarding: Diagnosis, Need For Followup, Rx Given - Disposition Referrals: [facility] [Outside] Disposition: HOME/ ROUTINE Disposition Time: 00:48 Condition: STABLE Additional Instructions: pLEASE FOLLWO UP IN CLINIC 1-2 DAYS LIQUID DIET FOR24 Prescriptions: Aluminum Hydroxide/Magnesium H [Maalox 30 ml] 30 ml PO TID #100 ml Famotidine [Pepcid] 20 mg PO DAILY #14 tab Instructions: Acute Abdomen (Belly Pain) Forms: [facility] (Estonian) - Clinical Impression Clinical Impression: Abdominal pain - PA / UTILITY WORKER DRIVER / Resident Statement MD/DO has reviewed & agrees with the documentation as recorded. - Scribe Statement The provider has reviewed the documentation as recorded by the Scribe Slim Orlando All medical record entries made by the Scribe were at my direction and personally dictated by me. I have reviewed the chart and agree that the record accurately reflects my personal performance of the history, physical exam, medical decision making, and the department course for this patient. I have also personally directed, reviewed, and agree with the discharge instructions and disposition.
[2018-08-11] MEDS ORDERED: Aluminum Hydroxide/Magnesium Hydroxide Susp (30 mL) PO STA (23:39)
[2018-08-11 23:54] LABS: BASO % 0.4 % (0.0-2.0); EOS # 0.1 K/uL (0.0-0.7); EOS % 1.5 % (0.0-4.0); HEMOGLOBIN 11.1 g/dL (11.0-16.0); LYMPH # 1.9 K/uL (1.0-4.3); LYMPH % 37.3 % (20.0-40.0); MEAN CORPUSCULAR HEMOGLOBIN 31.2 pg (27.0-31.0); MEAN CORPUSCULAR HGB CONC 33.6 g/dL (33.0-37.0); MONO # 0.6 K/uL (0.0-0.8); MONO % 12.1 % (0.0-10.0); NEUT # 2.5 K/uL (1.8-7.0); NEUT % 48.7 % (50.0-75.0); NRBC % 0.1 % (0.0-2.0); RBC 3.55 Mil/uL (3.80-5.20); RED CELL DISTRIBUTION WIDTH 13.9 % (11.5-14.5); WHITE BLOOD COUNT 5.2 K/uL (4.8-10.8)
[2018-08-11] MEDS ORDERED: Aluminum Hydroxide/Magnesium Hydroxide Susp (30 mL) ONE (23:58)
[2018-08-12 00:23] LABS: ALB/GLOB RATIO 1.1 (1.0-2.1); ALBUMIN 3.1 g/dL (3.5-5.0); ALT/SGPT 21 U/L (9-52); AST/SGOT 18 U/L (14-36); BLOOD UREA NITROGEN 11 mg/dL (7-17); CALCIUM 8.3 mg/dl (8.6-10.4); GFR NON-AFRICAN AMERICAN > 60; LIPASE 232 U/L (23-300)
[2018-08-12 01:03] VITALS: BP 95/56; PULSE 66; RESP 16; TEMP 98.5
[2018-08-12 02:38] VITALS: O2SAT 98
== END 2018-08-12 01:05 | disposition home or self-care (01) ==
LOC: C.ER 22:15
DX: R10.11 Right upper quadrant pain (principal); G20 Parkinson's disease; M81.0 Age-related osteoporosis without current pathological fracture

== ENCOUNTER 2018-08-22 15:18 | Emergency (ER) | payer MEDICARE, MEDICAID ==
[2018-08-22 15:27] VITALS: O2SAT 100; BMI 23.3
[2018-08-22] MEDS ORDERED: Sodium Chloride 0.9% 1,000 ML IV ONE (16:19)
[2018-08-22 16:46] LABS: BASO % 0.7 % (0.0-2.0); EOS # 0.1 K/uL (0.0-0.7); EOS % 1.3 % (0.0-4.0); HEMOGLOBIN 12.9 g/dL (11.0-16.0); LYMPH % 44.3 % (20.0-40.0); MEAN CELL VOLUME 92.9 fL (81.0-99.0); MEAN CORPUSCULAR HEMOGLOBIN 30.9 pg (27.0-31.0); MEAN CORPUSCULAR HGB CONC 33.2 g/dL (33.0-37.0); MONO # 0.5 K/uL (0.0-0.8); MONO % 11.8 % (0.0-10.0); NEUT # 1.9 K/uL (1.8-7.0); NEUT % 41.9 % (50.0-75.0); NRBC % 0.1 % (0.0-2.0); RBC 4.18 Mil/uL (3.80-5.20); RED CELL DISTRIBUTION WIDTH 13.6 % (11.5-14.5); WHITE BLOOD COUNT 4.6 K/uL (4.8-10.8)
--- NOTE | 2018-08-22 16:46 | C.PDOC ---
History Of Present Illness 48 y/o female presents to ED with c/o right sided abdominal pain for 1 week. Patient sent to ED by PMD for CT scan of abdomen to rule out appendicitis. Patient admits to mild dizziness and nausea, denies fever, vomiting, diarrhea, back pain or any other complaints at this time. Chief Complaint (Nursing): Abdominal Pain History Per: Patient History/Exam Limitations: no limitations Onset/Duration Of Symptoms: Days Current Symptoms Are (Timing): Still Present Location Of Pain/Discomfort: RUQ, RLQ Past Medical History Reviewed: Historical Data, Nursing Documentation, Vital Signs Vital Signs: Last Vital Signs Temp 97.5 F L 08/22/18 15:26 Pulse 75 08/22/18 15: Resp 17 08/22/18 15: BP 109/75 08/22/18 15: Pulse Ox 100 08/22/18 15:26 - Medical History PMH: Asthma, Osteoporosis, Parkinson's Disease Surgical History: No Surg Hx Family History: States: No Known Family Hx - Social History Hx Tobacco Use: No Hx Alcohol Use: No Hx Substance Use: No - Immunization History Hx Tetanus Toxoid Vaccination: No Hx Influenza Vaccination: Yes Hx Pneumococcal Vaccination: No Review Of Systems Constitutional: Negative for: Fever, Chills Gastrointestinal: Positive for: Nausea, Abdominal Pain. Negative for: Vomiting, Diarrhea Skin: Negative for: Rash Neurological: Positive for: Dizziness. Negative for: Weakness, Numbness Physical Exam - Physical Exam Appears: Non-toxic, No Acute Distress Skin: Warm, Dry, No Rash Head: Atraumatic, Normacephalic Eye(s): bilateral: Normal Inspection Oral Mucosa: Moist Neck: Normal ROM, Supple Cardiovascular: Rhythm Regular Respiratory: Normal Breath Sounds, No Rales, No Rhonchi, No Wheezing Gastrointestinal/Abdominal: Soft, Tenderness (mild right sided ), No Guarding, No Rebound Back: No CVA Tenderness Neurological/Psych: Oriented x3, Normal Speech, Normal Cognition ED Course And Treatment - Laboratory Results Result Diagrams: 08/22/18 16:42 08/22/18 16:42 O2 Sat by Pulse Oximetry: 100 (RA) Pulse Ox Interpretation: Normal Disposition - Disposition Referrals: [facility] [Outside] [facility] [Outside] Disposition: HOME/ ROUTINE Disposition Time: 18:15 Condition: GOOD Additional Instructions: STANLEY CORRIGAN, thank you for letting us take care of you today. The emergency medical care you received today was directed at your acute symptoms. If you were prescribed any medication, please fill it and take as directed. It may take several days for your symptoms to resolve. Return to the Emergency Department if your symptoms worsen, do not improve, or if you have any other problems. Please contact your doctor or call one of the physicians/clinics you have been referred to that are listed on the Patient Visit Information form that is included in your discharge packet. Bring any paperwork you were given at discharge with you along with any medications you are taking to your follow up visit. Our treatment cannot replace ongoing medical care by a primary care provider outside of the emergency department. Thank you for allowing the [facility] team to be part of your care today. Follow up with your primary care doctor or our clinic next week for re- evaluation and further management. STANLEY CORRIGAN, og por dejarnos cuidar de ti maral. La atencin mdica de emergencia que recibi hoy se dirigi a betty sntomas agudos. Si le recetaron algn medicamento, llnelo y tmelo segn las indicaciones. Los sntomas pueden tardar varios plasencia en resolverse. Regrese al Departamento de Emergencias si betty sntomas empeoran, no mejoran o si tiene otros problemas. Comunquese con salcedo mdico o llame a gavi de los mdicos / clnicas a los que rivas sido referido que figuran en el formulario de Informacin de visita al paciente que se incluye en salcedo paquete de waldo. Lleve con usted a salcedo consulta de seguimiento toda la documentacin que recibi del waldo junto con los medicamentos que est tomando. Nuestro tratamiento no puede reemplazar la atencin mdica continua por parte de un proveedor de atencin primaria fuera del departamento de emergencias. Og por permitir que el equipo de [facility] sea parte de salcedo atencin hoy. Willard un seguimiento con salcedo mdico de atencin primaria o nuestra clnica la prxima semana para reji reevaluacin y manejo adicional. Prescriptions: Meclizine [Meclizine*] 25 mg PO Q6 PRN #20 tab PRN Reason: Dizziness Instructions: Vertigo (a Type of Dizziness) (DC) Forms: Gen Discharge Inst Nepali, [facility] (Nepali) Print Language: TURKISH - Clinical Impression Clinical Impression: Vertigo, Abdominal pain - Scribe Statement The provider has reviewed the documentation as recorded by the Scribkelly Serrano All medical record entries made by the Andrewibe were at my direction and personally dictated by me. I have reviewed the chart and agree that the record accurately reflects my personal performance of the history, physical exam, medical decision making, and the department course for this patient. I have also personally directed, reviewed, and agree with the discharge instructions and disposition.
[2018-08-22 16:51] LABS: URINE BILIRUBIN NEGATIVE (NEGATIVE); URINE CLARITY Clear (Clear); URINE COLOR Colorless (YELLOW); URINE GLUCOSE (UA) NORMAL (Normal); URINE LEUKOCYTE ESTERASE NEG Leu/uL (Negative); URINE PROTEIN NEGATIVE (NEGATIVE); URINE UROBILINOGEN NORMAL mg/dL (0.2-1.0)
[2018-08-22 16:53] LABS: URINE BLOOD TRACE (NEGATIVE)
[2018-08-22 17:03] LABS: ALB/GLOB RATIO 1.4 (1.0-2.1); ALBUMIN 4.1 g/dL (3.5-5.0); ALT/SGPT 16 U/L (9-52); AST/SGOT 21 U/L (14-36); BLOOD UREA NITROGEN 8 mg/dL (7-17); GFR NON-AFRICAN AMERICAN > 60; LIPASE 128 U/L (23-300)
[2018-08-22] MEDS ORDERED: Iohexol 350mg/ml 100 ML ONE (17:41)
--- NOTE | 2018-08-22 18:11 | CT ---
Date of service: 08/22/2018 PROCEDURE: CT Abdomen and Pelvis with contrast HISTORY: persistant right-sided abdominal pain COMPARISON: Comparison is made with the previous study dated 08/11/2018 TECHNIQUE: Contrast dose: 100 mL of Omnipaque 350 intravenously. Axial and reformatted coronal and sagittal CT images of the abdomen and pelvis were obtained after Radiation dose: Total exam DLP = IV contrast administration. MGy-cm. This CT exam was performed using one or more of the following dose reduction techniques: Automated exposure control, adjustment of the mA and/or kV according to patient size, and/or use of iterative reconstruction technique. FINDINGS: LOWER THORAX: Unremarkable. LIVER: Heterogeneous enhancement of the liver is noted without evidence of discrete mass. The liver is mildly enlarged. GALLBLADDER AND BILE DUCTS: No evidence of acute cholecystitis. PANCREAS: Unremarkable. No gross lesion or ductal dilatation. SPLEEN: Unremarkable. ADRENALS: Unremarkable. No mass. KIDNEYS AND URETERS: Again noted is 3 millimeter nonobstructing calculus at the left kidney. No evidence of hydronephrosis or hydroureter. VASCULATURE: Unremarkable. No aortic aneurysm. No aortic atherosclerotic calcification or mural plaque present. BOWEL: Mild constipation is again noted. No obstruction. No gross mural thickening. APPENDIX: No CT evidence of acute appendicitis. PERITONEUM: Unremarkable. No free fluid. No free air. LYMPH NODES: Unremarkable. No enlarged lymph nodes. BLADDER: Unremarkable. REPRODUCTIVE: Heterogeneous mild enlargement of the uterus is again noted. BONES: No acute fracture. OTHER FINDINGS: None. IMPRESSION: No CT evidence of cholecystitis or appendicitis. Stable 3 millimeter nonobstructing left renal calculus. Slightly prominent heterogeneous uterus without evidence of discrete mass.
[2018-08-22 18:49] VITALS: BP 116/77; PULSE 58; RESP 16; TEMP 97.7
== END 2018-08-22 18:49 | disposition home or self-care (01) ==
LOC: C.ER 15:18
DX: R42 Dizziness and giddiness (principal); R10.31 Right lower quadrant pain; R10.11 Right upper quadrant pain; G20 Parkinson's disease; M81.0 Age-related osteoporosis without current pathological fracture
CPT/HCPCS: 74177; 80053; 81001; 83690; 85025; 87086; 96360; 99284; J7030; Q9967

== ENCOUNTER 2019-01-13 23:39 | Emergency (ER) | payer MEDICARE, MEDICAID ==
[2019-01-13 23:39] VITALS: BMI 23.3
[2019-01-13 23:48] VITALS: O2SAT 100
--- NOTE | 2019-01-14 00:20 | C.PDOC ---
History Of Present Illness 48 year old female presents to the ED c/o right sided abdominal and flank pain. Patient reports she had an US done today but does not have the results with her. Patient denies fever, chills, nausea, vomit, diarrhea, dysuria, hematuria. Time Seen by Provider: 01/14/19 00:19 Chief Complaint (Nursing): Abdominal Pain History Per: Patient History/Exam Limitations: no limitations Onset/Duration Of Symptoms: Hrs Current Symptoms Are (Timing): Still Present Pain Scale Rating Of: 4 Location Of Pain/Discomfort: RUQ, RLQ Quality Of Discomfort: Sharp, Stabbing, "Pain" Associated Symptoms: denies: Nausea, Vomiting, Loss Of Appetite, Urinary Symptoms Recent travel outside of the [place]: No Additional History Per: Patient Abnormal Vaginal Bleeding: No Past Medical History Reviewed: Historical Data, Nursing Documentation, Vital Signs Vital Signs: Last Vital Signs Temp 97.4 F L 01/13/19 23:43 Pulse 67 01/13/19 23:43 Resp 20 01/13/19 23:43 BP 116/72 01/13/19 23:43 Pulse Ox 100 01/13/19 23:43 - Medical History PMH: Asthma, Hiatal Hernia, Kidney Stones, Osteoporosis, Parkinson's Disease, Chronic Kidney Disease Surgical History: No Surg Hx Family History: States: Unknown Family Hx - Social History Hx Tobacco Use: No Hx Alcohol Use: No Hx Substance Use: No - Immunization History Hx Tetanus Toxoid Vaccination: No Hx Influenza Vaccination: Yes Hx Pneumococcal Vaccination: No Review Of Systems Constitutional: Negative for: Fever, Chills Cardiovascular: Negative for: Chest Pain Respiratory: Negative for: Shortness of Breath Gastrointestinal: Positive for: Abdominal Pain. Negative for: Nausea, Vomiting Genitourinary: Negative for: Dysuria, Hematuria Musculoskeletal: Positive for: Back Pain Neurological: Negative for: Weakness, Numbness, Headache Physical Exam - Physical Exam Appears: Non-toxic, No Acute Distress Skin: Warm, Dry Head: Normacephalic Eye(s): bilateral: Normal Inspection Oral Mucosa: Moist Neck: Supple Chest: Symmetrical Cardiovascular: Rhythm Regular Respiratory: No Rales, No Rhonchi, No Wheezing Gastrointestinal/Abdominal: Soft, Tenderness (right sided), No Guarding, No Rebound Extremity: Bilateral: Atraumatic, Normal Color And Temperature, Normal ROM Neurological/Psych: Oriented x3, Normal Speech, Normal Cognition Gait: Steady ED Course And Treatment - Laboratory Results Result Diagrams: 01/14/19 00:39 01/14/19 00:39 O2 Sat by Pulse Oximetry: 100 (On RA) Pulse Ox Interpretation: Normal - CT Scan/US CT abd/pelvis Other Rad Studies (CT/US): Read By Radiologist, Radiology Report Reviewed CT/US Interpretation: CT SCAN OF THE ABDOMEN AND PELVIS WITH CONTRAST. CLINICAL HISTORY: Abdominal pain. TECHNIQUE: Multiple axial and coronal CT images were obtained through the abdomen and pelvis after administration of intravenous contrast material. COMPARISON: 08/22/2018. COMMENTS: Scattered fluid-filled small bowels. The liver is of uniform attenuation without mass or defect. There is no intra or extrahepatic biliary ductal dilatation. The spleen is normal. The gallbladder is within normal limits. The pancreas is of normal contour and attenuation characteristics. There is no evidence of adrenal mass. Both kidneys demonstrate prompt and equal nephrograms. The kidneys are normal in size, shape and configuration. There is no evidence of renal or ureteral mass. No renal or ureteral calculi are identified. There is no hydroureter or hydronephrosis. No evidence for appendicitis. There is no bowel wall thickening. No evidence for small or large bowel obstruction. There is no evidence of abdominal ascites or lymphadenopathy. There is no evidence of intrinsic or extrinsic bladder mass. There is no pelvic ascites or lymphadenopathy. Changes of pelvic congestion syndrome. Images of the lung bases show no evidence of pleural or parenchymal mass. There are no pleural effusions. The bony structures are free of lytic or blastic lesions. IMPRESSION: Scattered fluid-filled small bowels. Ileus versus developing enteritis. Pelvic congestion syndrome. Thank you for your kind referral of this patient. . Electronically signed on Jan 14, 2019 3:50:31 AM EDT by: Valerie Anderson M.D., Certified by ABR, MSK, Neuroradiology. Progress Note: Plan: - CT abd/pelvis. - Labs. - Pepcid 20 mg IVP. - IV fluids. - Zofran 4 mg IVP. - UA Reevaluation Time: 03:55 Reassessment Condition: Improved Medical Decision Making Medical Decision Making: Upon provider reevaluation patient is feeling better, is medically stable, and requires no further treatment in the ED at this time. Patient will be discharged home with Rx for flagyl. Counseling was provided and all questions were answered regarding diagnosis and need for follow up with dr leonard. There is agreement to discharge plan. Return if symptoms persist or worsen. Disposition Counseled Patient/Family Regarding: Studies Performed, Diagnosis, Need For Followup, Rx Given - Disposition Referrals: Deisy Leonard MD [Staff Provider] - Disposition: HOME/ ROUTINE Disposition Time: 00:20 Condition: FAIR Additional Instructions: Por favor regrese si los sntomas recurren. Prescriptions: Metronidazole [Flagyl] 500 mg PO TID #21 tablet Instructions: Acute Abdomen (Belly Pain), Adult (DC) Forms: [id number] (Macedonian) Print Language: AFGHAN - Clinical Impression Clinical Impression: Pelvic congestion, Abdominal pain - Scribe Statement The provider has reviewed the documentation as recorded by the Scribe Slim Orlando All medical record entries made by the Scribe were at my direction and personally dictated by me. I have reviewed the chart and agree that the record accurately reflects my personal performance of the history, physical exam, [facility] [place] decision making, and the department course for this patient. I have also personally directed, reviewed, and agree with the discharge instructions and disposition.
[2019-01-14] MEDS ORDERED: Sodium Chloride 0.9% 1,000 ML IV ONE (00:23)
[2019-01-14 00:42] LABS: BASO % 0.3 % (0.0-2.0); EOS # 0.1 K/uL (0.0-0.7); EOS % 1.8 % (0.0-4.0); HEMOGLOBIN 12.3 g/dL (11.0-16.0); LYMPH # 2.2 K/uL (1.0-4.3); MEAN CORPUSCULAR HEMOGLOBIN 30.7 pg (27.0-31.0); MEAN CORPUSCULAR HGB CONC 32.7 g/dL (33.0-37.0); MONO # 0.5 K/uL (0.0-0.8); MONO % 11.4 % (0.0-10.0); NEUT # 1.7 K/uL (1.8-7.0); NEUT % 37.5 % (50.0-75.0); RBC 3.99 Mil/uL (3.80-5.20); RED CELL DISTRIBUTION WIDTH 13.4 % (11.5-14.5); WHITE BLOOD COUNT 4.5 K/uL (4.8-10.8)
[2019-01-14 01:06] LABS: ALB/GLOB RATIO 1.4 (1.0-2.1); ALBUMIN 3.8 g/dL (3.5-5.0); ALT/SGPT 18 U/L (9-52); AST/SGOT 26 U/L (14-36); BLOOD UREA NITROGEN 14 mg/dL (7-17); CALCIUM 8.7 mg/dl (8.6-10.4); GFR NON-AFRICAN AMERICAN > 60; LIPASE 153 U/L (23-300)
[2019-01-14 01:26] LABS: HCG,QUALITATIVE URINE NEGATIVE (NEGATIVE); SQUAMOUS EPITHIAL 1 /hpf (0-5); URINE BILIRUBIN NEGATIVE (NEGATIVE); URINE BLOOD NEGATIVE (NEGATIVE); URINE CLARITY Clear (Clear); URINE COLOR Yellow (YELLOW); URINE GLUCOSE (UA) NORMAL (Normal); URINE LEUKOCYTE ESTERASE NEG Leu/uL (Negative); URINE PROTEIN NEGATIVE (NEGATIVE); URINE UROBILINOGEN NORMAL mg/dL (0.2-1.0)
[2019-01-14 02:00] VITALS: RESP 17
[2019-01-14] MEDS ORDERED: Iodixanol 320 MG/ML 100 ML BOTTLE IV ONE (02:14)
[2019-01-14 04:05] VITALS: BP 128/75; PULSE 56; TEMP 98.6
--- NOTE | 2019-01-14 13:57 | CT ---
Date of service: 01/14/2019 PROCEDURE: CT Abdomen and Pelvis with contrast HISTORY: ruq and r flank pain, neg urine COMPARISON: 08/22/2018 TECHNIQUE: Contrast dose: 100 cc of Omni 300 Radiation dose: Total exam DLP = 621.48 mGy-cm. This CT exam was performed using one or more of the following dose reduction techniques: Automated exposure control, adjustment of the mA and/or kV according to patient size, and/or use of iterative reconstruction technique. FINDINGS: LOWER THORAX: Unremarkable. LIVER: Unremarkable. No gross lesion or ductal dilatation. GALLBLADDER AND BILE DUCTS: Unremarkable. PANCREAS: Unremarkable. No gross lesion or ductal dilatation. SPLEEN: Unremarkable. ADRENALS: Unremarkable. No mass. KIDNEYS AND URETERS: Unremarkable. No hydronephrosis. No solid mass. VASCULATURE: Unremarkable. No aortic aneurysm. No aortic atherosclerotic calcification or mural plaque present. BOWEL: Unremarkable. No obstruction. No gross mural thickening. APPENDIX: Normal appendix. PERITONEUM: Unremarkable. No free fluid. No free air. LYMPH NODES: Unremarkable. No enlarged lymph nodes. BLADDER: Unremarkable. REPRODUCTIVE: Unremarkable. BONES: No acute fracture. OTHER FINDINGS: The report concurs with the preliminary [facility] report IMPRESSION: No acute intra-abdominal findings
== END 2019-01-14 04:14 | disposition home or self-care (01) ==
LOC: C.ER 23:39
DX: R10.11 Right upper quadrant pain (principal); N94.89 Other specified conditions associated with female genital organs and menstrual cycle
CPT/HCPCS: 74177; 80053; 81001; 83690; 84703; 85025; 96361; 96374; 96375; 99285; J2405; J7030; Q9967